=== PATIENT | male | born 1950 | race Caucasian/White ===

== ENCOUNTER 2017-11-05 00:54 | Inpatient (IN) | payer MEDICARE, BC ==
[~2017-11-05] VITALS: Ht 188 cm; Wt 110.0 kg
[2017-11-05] VITALS (20 sets, daily range): BP systolic 125–177; BP diastolic 57–99
[~2017-11-05 00:54] MED LIST: CLOP75TA35 PO; METO25TA6 PO
[2017-11-05 01:34] LABS: HEMOGLOBIN 13.5 g/dl (14.0-17.9); PROTHROMBIN TIME 10.2 SECONDS (9.0-12.0); RED BLOOD COUNT 4.16 X10'6 (4.70-6.10); WHITE BLOOD COUNT 9.7 X10'3 (4.5-11.0)
[2017-11-05 01:35] LABS: BASOPHILS % (AUTO) 0.4 % (0-1); EOSINOPHILS # (AUTO) 0.1 X10'3 (0-0.9); EOSINOPHILS % (AUTO) 1.2 % (0-6); HEMATOCRIT 38.8 % (42.0-52.0); LYMPHOCYTES # (AUTO) 1.3 X10'3 (1.1-4.8); MEAN CORPUSCULAR HEMOGLOBIN 32.5 PG (27.0-31.0); MEAN CORPUSCULAR HGB CONC 34.8 % (33.0-36.5); MEAN CORPUSCULAR VOLUME 93.3 FL (78-98); MEAN PLATELET VOLUME 8.8 FL (7.4-10.4); MONOCYTES # (AUTO) 0.6 X10'3 (0-0.9); MONOCYTES % (AUTO) 6.1 % (2-12); NEUTROPHILS # (AUTO) 7.7 X10'3 (1.8-7.7); NEUTROPHILS % (AUTO) 79.3 % (42-75); PLATELET COUNT 238 X10'3 (140-440); RED CELL DISTRIBUTION WIDTH 13.2 % (11.5-14.5)
[2017-11-05 01:38] LABS: ALANINE AMINOTRANSFERASE 15 U/L (12-78); ALBUMIN 2.7 G/DL (3.4-5.0); ALBUMIN/GLOBULIN RATIO 1.2 (1.1-1.5); ALKALINE PHOSPHATASE 100 IU/L (46-116); ANION GAP 10 (8-16); ASPARTATE AMINO TRANSFERASE 8 U/L (10-37); BILIRUBIN,TOTAL 0.3 MG/DL (0.1-1.0); BLOOD UREA NITROGEN 18 MG/DL (7-18); BUN/CREATININE RATIO 14.3 (5.4-32.0); CALCIUM 7.7 MG/DL (8.5-10.1); CHLORIDE 108 MMOL/L (99-107); CREATININE 1.26 MG/DL (0.60-1.10); GLUCOSE 321 MG/DL (70-104); POTASSIUM 4.3 MMOL/L (3.5-5.1); SODIUM 141 MMOL/L (135-145); TOTAL CARBON DIOXIDE 23.5 MMOL/L (24-32); TOTAL PROTEIN 4.9 G/DL (6.4-8.2); eGFR 57 ML/MIN
[2017-11-05] MEDS ORDERED: pantoprazole 40 MG vial IV ONE (01:50)
[2017-11-05] MEDS ORDERED: normal saline 1000ML IV soln IV ONE (01:50)
[2017-11-05] MEDS ORDERED: tranexamic acid 100mg/ml inj. IV ONE (01:55)
[2017-11-05] MEDS ORDERED: CLOP75TA15 PO (02:17)
[2017-11-05] MEDS ORDERED: AMLO2.5T2 PO (02:17)
[2017-11-05 02:47] LABS: HEMATOCRIT 31.6 % (42.0-52.0); HEMOGLOBIN 10.8 g/dl (14.0-17.9); MEAN CORPUSCULAR HEMOGLOBIN 31.3 PG (27.0-31.0); MEAN CORPUSCULAR HGB CONC 34.3 % (33.0-36.5); MEAN CORPUSCULAR VOLUME 91.2 FL (78-98); MEAN PLATELET VOLUME 8.5 FL (7.4-10.4); PLATELET COUNT 183 X10'3 (140-440); RED BLOOD COUNT 3.46 X10'6 (4.70-6.10); WHITE BLOOD COUNT 9.6 X10'3 (4.5-11.0)
[2017-11-05 02:57] LABS: COLOR,URINE YELLOW (Yellow); GLUCOSE, URINE >=1000 mg/dl (Neg); KETONES,URINE TRACE mg/dl (Neg); LEUKOCYTE ESTERASE ,URINE NEGATIVE (Neg); NITRITES, URINE NEGATIVE (Neg); OCCULT BLOOD,URINE MODERATE (Neg); PH,URINE 5.5 (4.8-8.0); PROTEIN,URINE NEGATIVE (Neg); UROBILINOGEN,URINE 0.2 E.U/dL (0.2-1.0)
[2017-11-05 02:58] LABS: PARTIAL THROMBOPLASTIN TIME 27 SECONDS (22-32)
[2017-11-05 03:04] LABS: CLARITY,URINE SLIGHTLY CLOUDY (Clear); UA COLLECTION TYPE FOLEY CATH
[2017-11-05 03:05] LABS: BACTERIA,URINE FEW /HPF (Neg); SQUAMOUS EPITHELIAL CELL,UR FEW /LPF (FEW); WBC,URINE NONE SEEN /HPF (0-4)
[2017-11-05] MEDS ORDERED: bisacodyl 10mg suppository rectal RC PRN (03:20)
[2017-11-05] MEDS ORDERED: mag hydrox/Alum hydrox/simeth 30ml oral suspension PO PRN (03:20)
[2017-11-05] MEDS ORDERED: acetaminophen 650mg rectal suppository RC PRN (03:20)
[2017-11-05] MEDS ORDERED: HYDROmorphone 1 mg/ml syringe IV PRN ×2 (03:20)
[2017-11-05] MEDS ORDERED: insulin Lispro (HumaLOG) vial - multi-dose SQ SCH (03:20)
[2017-11-05] MEDS ORDERED: HYDROcodone/acetaminophen 10/325mg tab PO PRN (03:20)
[2017-11-05] MEDS ORDERED: HYDROcodone/acetaminophen 5mg/325mg tablet PO PRN (03:20)
[2017-11-05] MEDS ORDERED: ondansetron/PF 4mg/2ml inj IV PRN (03:20)
[2017-11-05] MEDS ORDERED: magnesium hydroxide 30ml (MOM) UD suspension PO PRN (03:20)
[2017-11-05] MEDS ORDERED: acetaminophen 325mg tablet PO PRN ×2 (03:20)
[2017-11-05] MEDS ORDERED: dextrose ORAL solution 15 GM/59 ML bottle PO PRN ×2 (03:20)
[2017-11-05] MEDS ORDERED: MESSAGE TO PHARMACY PO ONE (03:20)
[2017-11-05] MEDS ORDERED: morphine 2 MG/ML inj. syringe IV PRN ×2 (03:20)
[2017-11-05] MEDS ORDERED: glucagon, human recombinant 1mg kit SUBCUT PRN (03:20)
[2017-11-05] MEDS ORDERED: diphenhydrAMINE 50 mg/ml inj IV PRN (03:20)
[2017-11-05] MEDS ORDERED: diphenhydrAMINE 25mg capsule PO PRN (03:20)
[2017-11-05] MEDS ORDERED: dextrose 50%-water 50ml dispensing syringe IV PRN ×2 (03:20)
[2017-11-05 03:45] LABS: HEMOGLOBIN A1C 7.8 % (4.5-6.2)
[2017-11-05 03:51] LABS: MAGNESIUM 1.8 MG/DL (1.5-2.4); PHOSPHORUS 3.3 MG/DL (2.3-4.5)
[2017-11-05] MEDS: normal saline 1000ml 1,000 ML IV SCH ×3 (05:08→23:20)
[2017-11-05] MEDS ORDERED: pantoprazole 40MG/NS 100ML BAG 100 ML IV SCH (06:00)
[2017-11-05 07:00] LABS: BASOPHILS % (AUTO) 0.3 % (0-1); EOSINOPHILS # (AUTO) 0.1 X10'3 (0-0.9); EOSINOPHILS % (AUTO) 1.4 % (0-6); HEMATOCRIT 36.5 % (42.0-52.0); HEMOGLOBIN 12.5 g/dl (14.0-17.9); LYMPHOCYTES # (AUTO) 1.1 X10'3 (1.1-4.8); LYMPHOCYTES % (AUTO) 10.2 % (21-51); MEAN CORPUSCULAR HEMOGLOBIN 31.1 PG (27.0-31.0); MEAN CORPUSCULAR HGB CONC 34.3 % (33.0-36.5); MEAN CORPUSCULAR VOLUME 90.7 FL (78-98); MEAN PLATELET VOLUME 8.4 FL (7.4-10.4); MONOCYTES # (AUTO) 0.5 X10'3 (0-0.9); MONOCYTES % (AUTO) 4.7 % (2-12); NEUTROPHILS # (AUTO) 8.8 X10'3 (1.8-7.7); NEUTROPHILS % (AUTO) 83.4 % (42-75); PLATELET COUNT 207 X10'3 (140-440); RED BLOOD COUNT 4.02 X10'6 (4.70-6.10); RED CELL DISTRIBUTION WIDTH 14.5 % (11.5-14.5); WHITE BLOOD COUNT 10.6 X10'3 (4.5-11.0)
[2017-11-05 07:12] LABS: AMYLASE 33 U/L (25-115); LIPASE 232 U/L (73-393)
[2017-11-05] MEDS: docusate sod 100mg capsule PO SCH ×2 (07:48→20:00)
[2017-11-05] MEDS ORDERED: potassium Cl 20 mEq SR tablet PO PRN ×2 (09:45)
[2017-11-05] MEDS ORDERED: potassium Cl 40MEQ/NS 500ml 500 ML IV PRN ×2 (09:45)
[2017-11-05] MEDS ORDERED: magnesium Cl slow-release 64mg tablet PO PRN (09:45)
[2017-11-05] MEDS ORDERED: magnesium 4gm in 100ml NS 100 ML IV PRN (09:45)
[2017-11-05] MEDS ORDERED: magnesium 2GM in 50ml NS 50 ML IV SCH (09:55)
[2017-11-05] MEDS ORDERED: MIDAZolam 5mg/5ml vial ONE (12:31)
[2017-11-05] MEDS ORDERED: fentaNYL/PF 50MCG/1 ML 2ML syringe ONE (12:31)
[2017-11-05] MEDS ORDERED: LIDOcaine Viscous 15ml cup ONE (12:31)
[2017-11-05] MEDS: lisinopril 20mg tablet PO SCH (13:52)
[2017-11-05] MEDS: amLODIPine 5mg tablet PO SCH (13:52)
[2017-11-05] MEDS ORDERED: PEG 3350/Na sulf,bicarb,Cl/KCl oral sol 4 liter bottle PO ONE (14:45)
[2017-11-05] MEDS ORDERED: temazepam 15mg capsule PO PRN (21:00)
[2017-11-06] VITALS (9 sets, daily range): BP systolic 137–164; BP diastolic 54–94
[2017-11-06 05:10] LABS: BASOPHILS % (AUTO) 0.4 % (0-1); EOSINOPHILS # (AUTO) 0.2 X10'3 (0-0.9); EOSINOPHILS % (AUTO) 2.7 % (0-6); HEMATOCRIT 30.8 % (42.0-52.0); HEMOGLOBIN 10.6 g/dl (14.0-17.9); LYMPHOCYTES % (AUTO) 25.4 % (21-51); MEAN CORPUSCULAR HEMOGLOBIN 31.1 PG (27.0-31.0); MEAN CORPUSCULAR HGB CONC 34.5 % (33.0-36.5); MEAN CORPUSCULAR VOLUME 90.2 FL (78-98); MEAN PLATELET VOLUME 8.2 FL (7.4-10.4); MONOCYTES # (AUTO) 0.6 X10'3 (0-0.9); MONOCYTES % (AUTO) 7.9 % (2-12); NEUTROPHILS # (AUTO) 4.9 X10'3 (1.8-7.7); NEUTROPHILS % (AUTO) 63.6 % (42-75); PLATELET COUNT 172 X10'3 (140-440); RED BLOOD COUNT 3.41 X10'6 (4.70-6.10); RED CELL DISTRIBUTION WIDTH 14.2 % (11.5-14.5); WHITE BLOOD COUNT 7.8 X10'3 (4.5-11.0)
[2017-11-06 05:36] LABS: ALANINE AMINOTRANSFERASE 12 U/L (12-78); ALBUMIN 2.7 G/DL (3.4-5.0); ALBUMIN/GLOBULIN RATIO 1.3 (1.1-1.5); ALKALINE PHOSPHATASE 80 IU/L (46-116); ANION GAP 8 (8-16); ASPARTATE AMINO TRANSFERASE 12 U/L (10-37); BILIRUBIN,TOTAL 0.4 MG/DL (0.1-1.0); BLOOD UREA NITROGEN 13 MG/DL (7-18); BUN/CREATININE RATIO 13.5 (5.4-32.0); CALCIUM 7.5 MG/DL (8.5-10.1); CHLORIDE 110 MMOL/L (99-107); CREATININE 0.96 MG/DL (0.60-1.10); GLUCOSE 160 MG/DL (70-104); PHOSPHORUS 2.4 MG/DL (2.3-4.5); POTASSIUM 3.9 MMOL/L (3.5-5.1); SODIUM 142 MMOL/L (135-145); TOTAL PROTEIN 4.8 G/DL (6.4-8.2); eGFR 78 ML/MIN
[2017-11-06] MEDS ORDERED: pantoprazole 40 MG vial IV SCH (08:00)
[2017-11-06] MEDS: docusate sod 100mg capsule PO SCH (08:00)
[2017-11-06] MEDS: lisinopril 20mg tablet PO SCH (09:10)
[2017-11-06] MEDS: amLODIPine 5mg tablet PO SCH (09:11)
[2017-11-06] MEDS: normal saline 1000ml 1,000 ML IV SCH (09:22)
[2017-11-06] MEDS ORDERED: MIDAZolam 5mg/5ml vial ONE (11:12)
[2017-11-06] MEDS ORDERED: fentaNYL/PF 50MCG/1 ML 2ML syringe ONE (11:12)
[2017-11-06] MEDS ORDERED: METF-950 PO (16:47)
[2017-11-06] MEDS ORDERED: PANT40TA4 PO (16:47)
[2017-11-06] MEDS ORDERED: LISI-600 PO (16:47)
[2017-11-06] MEDS ORDERED: SITA100T15 PO (16:47)
== END 2017-11-06 18:47 | disposition home or self-care (01) | DRG 378 ==
LOC: ER 00:54 → ED HOLD 03:19 → PCU 3S 04:40
PROVIDERS: ADMIT Family Medicine; ATTEND Family Medicine
PROC: 30233N1 Transfusion of Nonautologous Red Blood Cells into Peripheral Vein, Percutaneous Approach (ICD-10-PCS; principal; 2017-11-05)
PROC: 0DB48ZX Excision of Esophagogastric Junction, Via Natural or Artificial Opening Endoscopic, Diagnostic (ICD-10-PCS; 2017-11-05)
PROC: 0DJD8ZZ Inspection of Lower Intestinal Tract, Via Natural or Artificial Opening Endoscopic (ICD-10-PCS; 2017-11-06)
DX: K57.31 Diverticulosis of large intestine without perforation or abscess with bleeding (principal); I50.30 Unspecified diastolic (congestive) heart failure; D50.0 Iron deficiency anemia secondary to blood loss (chronic); E11.65 Type 2 diabetes mellitus with hyperglycemia; E78.00 Pure hypercholesterolemia, unspecified; F17.290 Nicotine dependence, other tobacco product, uncomplicated; K21.0 Gastro-esophageal reflux disease with esophagitis; Z60.2 Problems related to living alone; I11.0 Hypertensive heart disease with heart failure; I25.10 Atherosclerotic heart disease of native coronary artery without angina pectoris; K64.9 Unspecified hemorrhoids; Z79.02 Long term (current) use of antithrombotics/antiplatelets; Z79.84 Long term (current) use of oral hypoglycemic drugs; Z79.899 Other long term (current) drug therapy; Z88.6 Allergy status to analgesic agent; Z88.8 Allergy status to other drugs, medicaments and biological substances; Z91.018 Allergy to other foods
CPT/HCPCS: 36415; 36430; 43239; 45378; 71045; 74176; 80053; 81001; 82150; 82948; 83036; 83690; 83735; 83880; 84100; 85025; 85027; 85610; 85730; 86885; 86900; 86901; 86920; 87070; 88305; 93005; 96361; 96374; 96375; 99153; 99291; A4620; A6213; A6258; C9113; G0500; J2250; J3010; J7030; P9016

== ENCOUNTER 2018-12-19 20:09 | Inpatient (IN) | payer MEDICARE, BC ==
[2018-12-19] VITALS (7 sets, daily range): BP systolic 95–187; BP diastolic 61–84
[~2018-12-19] VITALS: Ht 190.5 cm; Wt 117.2 kg
[~2018-12-19 20:09] MED LIST changes: +AMLO2.5T2 PO; +CLOP75TA15 PO; -CLOP75TA35 PO; +LISI-600 PO; -METO25TA6 PO; +PANT40TA4 PO; +heparin 10,000 units/1 ML INJ ONE; +papaverine 30 mg/ml 2ml inj. ONE; +potassium Cl 2 mEq/ml inj IV ONE
[2018-12-19] MEDS ORDERED: normal saline 1000ML IV soln IVB ONE (20:20)
[2018-12-19] MEDS ORDERED: clopidogrel 75mg tablet PO ONE (20:20)
[2018-12-19] MEDS ORDERED: heparin 25,000 UNIT/250ml bag 250 ML IV SCH (20:29)
[2018-12-19] MEDS ORDERED: heparin 10,000 units/1 ML INJ IV ONE ×2 (20:30)
[2018-12-19] MEDS: heparin 10,000 units/1 ML INJ IV PRN (20:32)
[2018-12-19 20:38] LABS: BASOPHILS % (AUTO) 0.5 % (0-1); EOSINOPHILS # (AUTO) 0.2 X10'3 (0-0.9); EOSINOPHILS % (AUTO) 2.5 % (0-6); HEMATOCRIT 48.3 % (42.0-52.0); HEMOGLOBIN 16.6 g/dl (14.0-17.9); LYMPHOCYTES # (AUTO) 1.5 X10'3 (1.1-4.8); MEAN CORPUSCULAR HEMOGLOBIN 32.6 PG (27.0-31.0); MEAN CORPUSCULAR HGB CONC 34.3 g/dL (33.0-36.5); MEAN PLATELET VOLUME 8.3 FL (7.4-10.4); MONOCYTES # (AUTO) 0.8 X10'3 (0-0.9); MONOCYTES % (AUTO) 9.1 % (2-12); NEUTROPHILS # (AUTO) 6.3 X10'3 (1.8-7.7); NEUTROPHILS % (AUTO) 70.9 % (42-75); PLATELET COUNT 217 X10'3 (140-440); RED BLOOD COUNT 5.08 X10'6 (4.70-6.10); RED CELL DISTRIBUTION WIDTH 14.4 % (11.5-14.5); WHITE BLOOD COUNT 8.9 X10'3 (4.5-11.0)
[2018-12-19] MEDS ORDERED: LIDOcaine 1% (10mg/ml)w/preservative injection 20ml MDV ONE (20:38)
[2018-12-19] MEDS ORDERED: iohexol 350 MG/1 ML 200ml bottle ONE (20:38)
[2018-12-19] MEDS ORDERED: heparin 1,000unit/ml 10ml vial 10 ML ONE (20:38)
[2018-12-19 20:55] LABS: ALANINE AMINOTRANSFERASE 32 U/L (12-78); ALBUMIN 3.6 G/DL (3.4-5.0); ALKALINE PHOSPHATASE 123 IU/L (46-116); ANION GAP 10 (8-16); ASPARTATE AMINO TRANSFERASE 73 U/L (10-37); BILIRUBIN,TOTAL 0.4 MG/DL (0.1-1.0); BLOOD UREA NITROGEN 16 MG/DL (7-18); BUN/CREATININE RATIO 12.5 (5.4-32.0); CALCIUM 9.4 MG/DL (8.5-10.1); CHLORIDE 105 MMOL/L (99-107); CREATININE 1.28 MG/DL (0.60-1.10); GLUCOSE 221 MG/DL (70-104); MAGNESIUM 1.9 MG/DL (1.5-2.4); POTASSIUM 3.9 MMOL/L (3.5-5.1); SODIUM 142 MMOL/L (135-145); TOTAL CARBON DIOXIDE 26.8 MMOL/L (24-32); TOTAL PROTEIN 7.1 G/DL (6.4-8.2); eGFR 56 ML/MIN
--- NOTE | 2018-12-19 21:20 | NUR ---
Received report from label coder and awaiting arrival of patient to the PCU unit.
--- NOTE | 2018-12-19 21:30 | NUR ---
Patient arrived to the PCU unit at this time from the labor training manager. Patient stable and denies chest pain upon arrival but does complain of some back pain. He is able to make his needs known. He is on room air. Lying flat and will lay flat until 0000 per orders. Right groin site looks good with no bleeding or bruising around site and tegaderm and gauze dressing is in place. Pedal pulses intact. Blood pressure high with SBP in the 170's so will give PRN IVP Hydralazine. Will continue to monitor.
--- NOTE | 2018-12-19 22:00 | NUR ---
Informed by telegraphic typewriter installer that patient is in and out of bigeminy and that he had an 11 beat run of V-tach vs SVT and Doctor Marcelo notified via telephone and no new ordered were received.
[2018-12-19] MEDS ORDERED: hydrALAZINE 20mg/ml inj. IV PRN (22:35)
[2018-12-19] MEDS ORDERED: OXAZEpam 15mg capsule PO PRN (22:35)
[2018-12-19] MEDS ORDERED: HYDROcodone/acetaminophen 10/325mg tab PO PRN ×2 (22:35)
[2018-12-19] MEDS ORDERED: nitroGLYCERIN-Tridil 50MG/D5W 250 ML IV SCH (22:35)
[2018-12-19] MEDS ORDERED: cyclobenzaprine 10mg tablet PO PRN (22:35)
[2018-12-19] MEDS ORDERED: HYDROmorphone inj. 0.5 MG/0.5 ML DISP.SYRIN IV PRN (22:35)
[2018-12-19] MEDS ORDERED: normal saline 1000ml 400 ML IV SCH (22:40)
[2018-12-19] MEDS ORDERED: temazepam 15mg capsule PO PRN (22:40)
[2018-12-19] MEDS ORDERED: nitroGLYCERIN 0.4mg SUBLingual tab SL PRN (23:15)
--- NOTE | 2018-12-19 23:23 | NUR ---
Patient reporting increasing chest pain , unable to give a number but describes it as a pressure and was given Nitro SL x1 dose and this was effective in bringing the pain down to 1/10 and he says he does not need a second dose at this time.
[2018-12-19] MEDS: heparin 25,000 UNIT/250ml bag 250 ML IV SCH (23:28)
--- NOTE | 2018-12-19 23:30 | NUR ---
Per report from cath lab technologist nurse and also per the written order from Dr. Robertson, the Nitro drip is only to be started if patient gets chest pain that is unrelieved by the SL Nitro.
[2018-12-20] VITALS (9 sets, daily range): BP systolic 119–175; BP diastolic 61–86
[2018-12-20 03:23] LABS: CHOL/HDL RATIO 4.2 (0.00-4.99); CHOLESTEROL 157 MG/DL (0-200); HDL CHOLESTEROL 37 MG/DL (35-60)
[2018-12-20 03:25] LABS: LDL CHOLESTEROL 99 MG/DL (50-100); TRIGLYCERIDES 209 MG/DL (20-135)
[2018-12-20] MEDS: heparin 10,000 units/1 ML INJ IV PRN ×2 (03:48→11:27)
[2018-12-20] MEDS: heparin 25,000 UNIT/250ml bag 250 ML IV SCH ×2 (03:50→19:26)
[2018-12-20] MEDS ORDERED: LISI10TA4 PO (05:02)
[2018-12-20] MEDS ORDERED: AMLO10TA13 PO (05:02)
[2018-12-20] MEDS ORDERED: METF-438 PO (05:02)
[2018-12-20] MEDS ORDERED: CHLO25TA3 PO (05:02)
[2018-12-20] MEDS ORDERED: METO-395 PO (05:02)
--- NOTE | 2018-12-20 06:31 | NUR ---
Problems reprioritized. Patient report given, questions answered & plan of care reviewed with Yoselin CHIN.
--- NOTE | 2018-12-20 06:33 | NUR ---
Patient in room PCU 3023. I have received report from Eleanor CHIN and had the opportunity to ask questions and assume patient care.
[2018-12-20] MEDS ORDERED: glucagon, human recombinant 1mg kit SUBCUT PRN (08:05)
[2018-12-20] MEDS ORDERED: dextrose ORAL solution 15 GM/59 ML bottle PO PRN ×2 (08:05)
[2018-12-20] MEDS ORDERED: dextrose 50%-water 50ml dispensing syringe IV PRN ×2 (08:05)
[2018-12-20] MEDS ORDERED: MESSAGE TO PHARMACY PO ONE (08:05)
[2018-12-20] MEDS: lisinopril 10 MG tablet PO SCH (08:36)
[2018-12-20] MEDS: amLODIPine 5mg tablet PO SCH (08:37)
[2018-12-20] MEDS: metoprolol succinate 25mg (24-HOUR) SR. Tablet PO SCH (08:40)
[2018-12-20 10:18] LABS: ALBUMIN 3.1 G/DL (3.4-5.0); ANION GAP 7 (8-16); BLOOD UREA NITROGEN 16 MG/DL (7-18); BUN/CREATININE RATIO 16.2 (5.4-32.0); CALCIUM 8.8 MG/DL (8.5-10.1); CHLORIDE 106 MMOL/L (99-107); CREATININE 0.99 MG/DL (0.60-1.10); GLUCOSE 180 MG/DL (70-104); POTASSIUM 3.8 MMOL/L (3.5-5.1); SODIUM 139 MMOL/L (135-145); TOTAL CARBON DIOXIDE 25.9 MMOL/L (24-32); eGFR 75 ML/MIN
--- NOTE | 2018-12-20 14:16 | NUR ---
Cardiac diet ed consult: Pt TG 209 on admit. Pt seen by CAR for written/verbal HH ed w/ RD contact information provided. Pt very passive during ed. Addendum: 12/20/18 at [address] Amended: Links added.
[2018-12-20 15:07] LABS: CLARITY,URINE CLEAR (Clear); COLOR,URINE YELLOW (Yellow); GLUCOSE, URINE NEGATIVE (Neg); KETONES,URINE NEGATIVE (Neg); LEUKOCYTE ESTERASE ,URINE NEGATIVE (Neg); NITRITES, URINE NEGATIVE (Neg); OCCULT BLOOD,URINE NEGATIVE (Neg); PROTEIN,URINE NEGATIVE (Neg); UROBILINOGEN,URINE 0.2 E.U/dL (0.2-1.0)
[2018-12-20 15:10] LABS: UA COLLECTION TYPE CLN CATCH MIDSTREAM
[2018-12-20 15:22] LABS: URINE AMPHETAMINE SCREEN NEGATIVE (Neg); URINE BARBITUATE SCREEN NEGATIVE (Neg); URINE BENZODIAZEPINES SCREEN NEGATIVE (Neg); URINE CANNABINOID SCREEN NEGATIVE (Neg); URINE COCAINE SCREEN NEGATIVE (Neg); URINE METHADONE SCREEN NEGATIVE (Neg); URINE OPIATE SCREEN NEGATIVE (Neg); URINE PHENCYCLIDINE SCREEN NEGATIVE (Neg)
--- NOTE | 2018-12-20 16:23 | NUR ---
Problems reprioritized. Patient report given, questions answered & plan of care reviewed with Sparkle CHIN.
--- NOTE | 2018-12-20 16:27 | NUR ---
Patient in room PCU 3023. I have received report from ELSY ro and had the opportunity to ask questions and assume patient care.
--- NOTE | 2018-12-20 16:45 | NUR ---
Patient transferred to ACCE. Patient stable at time of transfer of care to Sparkle CHIN.
--- NOTE | 2018-12-20 16:48 | NUR ---
Orientee documentation: I have reviewed and agree with all interventions, assessments performed and documented by Mahnaz CHIN. Orientee Medication Administration: For this medication-pass time frame, all medication were reviewed, dispensed, administered and documented per hospital policy by Mahnaz CHIN.
--- NOTE | 2018-12-20 20:44 | NUR ---
The patient Blood sugar for 2100 is 201. Patient refuse to get the scheduled lantus. Ama-charge nurse aware of the issue.
[2018-12-20] MEDS: insulin glargine (Lantus) pen - multi-dose SQ SCH (20:45)
[2018-12-21 00:57] LABS: BASOPHILS # (AUTO) 0.1 X10'3 (0-0.2); BASOPHILS % (AUTO) 0.7 % (0-1); EOSINOPHILS # (AUTO) 0.2 X10'3 (0-0.9); EOSINOPHILS % (AUTO) 2.8 % (0-6); HEMATOCRIT 46.3 % (42.0-52.0); HEMOGLOBIN 15.9 g/dl (14.0-17.9); LYMPHOCYTES # (AUTO) 1.9 X10'3 (1.1-4.8); LYMPHOCYTES % (AUTO) 24.1 % (21-51); MEAN CORPUSCULAR HEMOGLOBIN 32.3 PG (27.0-31.0); MEAN CORPUSCULAR HGB CONC 34.3 g/dL (33.0-36.5); MEAN CORPUSCULAR VOLUME 94.2 FL (78-98); MEAN PLATELET VOLUME 8.5 FL (7.4-10.4); MONOCYTES # (AUTO) 0.9 X10'3 (0-0.9); MONOCYTES % (AUTO) 10.6 % (2-12); NEUTROPHILS % (AUTO) 61.8 % (42-75); PLATELET COUNT 208 X10'3 (140-440); RED BLOOD COUNT 4.91 X10'6 (4.70-6.10); RED CELL DISTRIBUTION WIDTH 14.3 % (11.5-14.5); WHITE BLOOD COUNT 8.1 X10'3 (4.5-11.0)
[2018-12-21 01:06] LABS: ALBUMIN 3.3 G/DL (3.4-5.0); ANION GAP 3 (8-16); BLOOD UREA NITROGEN 15 MG/DL (7-18); BUN/CREATININE RATIO 13.6 (5.4-32.0); CALCIUM 9.1 MG/DL (8.5-10.1); CHLORIDE 105 MMOL/L (99-107); GLUCOSE 133 MG/DL (70-104); POTASSIUM 3.8 MMOL/L (3.5-5.1); SODIUM 139 MMOL/L (135-145); TOTAL CARBON DIOXIDE 30.8 MMOL/L (24-32); eGFR 66 ML/MIN
[2018-12-21] MEDS: heparin 10,000 units/1 ML INJ IV PRN ×3 (01:32→23:48)
[2018-12-21] MEDS: heparin 25,000 UNIT/250ml bag 250 ML IV SCH ×3 (01:33→23:53)
[2018-12-21 02:00] VITALS: BP 155/85
--- NOTE | 2018-12-21 05:52 | NUR ---
Orientee documentation: I have reviewed and agree with all interventions, assessments performed and documented by Margy Garcia RN.
[2018-12-21 06:00] VITALS: BP 179/84
--- NOTE | 2018-12-21 06:13 | NUR ---
Gave report to Josephine. Answered all the questions.
[2018-12-21] MEDS: amLODIPine 5mg tablet PO SCH (08:33)
[2018-12-21] MEDS: lisinopril 10 MG tablet PO SCH (08:34)
[2018-12-21] MEDS: metoprolol succinate 25mg (24-HOUR) SR. Tablet PO SCH (08:34)
--- NOTE | 2018-12-21 09:22 | NUR ---
PAGED VASCULAR "PATIENT ANNELIESE IN 312. CAN YOU PLEASE COME DO VEIN MAPPING AND CAROTID US THIS MORNING? PRE OP CABG. THANK YOU, LEI GASCA [phone]"
--- NOTE | 2018-12-21 09:23 | NUR ---
PAGED RESPIRATORY "PT ANNELIESE IN 312. CAN YOU PLEASE COME DO ABG FOR PATIENT? THANK YOU, LEI GASCA [phone]"
[2018-12-21] MEDS: insulin Lispro (HumaLOG) vial - multi-dose SQ SCH (09:45)
[2018-12-21 11:00] VITALS: BP 148/77
[2018-12-21] MEDS ORDERED: ringers solution, lacted 1,000 ML IV ONE (11:22)
[2018-12-21 13:15] LABS: MAGNESIUM 2.1 MG/DL (1.5-2.4)
[2018-12-21 18:00] VITALS: BP 159/85
--- NOTE | 2018-12-21 18:00 | NUR ---
Patient in room MED 312. I have received report from JACK CHIN and had the opportunity to ask questions and assume patient care.
--- NOTE | 2018-12-21 18:42 | NUR ---
Problems reprioritized. Patient report given, questions answered & plan of care reviewed with ELSY Martinez.
[2018-12-21] MEDS: insulin glargine (Lantus) pen - multi-dose SQ SCH (21:32)
[2018-12-21 22:00] VITALS: BP 152/72
[2018-12-22 02:00] VITALS: BP 146/71
[2018-12-22 05:58] LABS: BASOPHILS # (AUTO) 0.1 X10'3 (0-0.2); BASOPHILS % (AUTO) 1.1 % (0-1); EOSINOPHILS # (AUTO) 0.2 X10'3 (0-0.9); EOSINOPHILS % (AUTO) 3.1 % (0-6); HEMATOCRIT 43.7 % (42.0-52.0); LYMPHOCYTES # (AUTO) 1.7 X10'3 (1.1-4.8); LYMPHOCYTES % (AUTO) 22.3 % (21-51); MEAN CORPUSCULAR HEMOGLOBIN 32.5 PG (27.0-31.0); MEAN CORPUSCULAR HGB CONC 34.4 g/dL (33.0-36.5); MEAN CORPUSCULAR VOLUME 94.7 FL (78-98); MEAN PLATELET VOLUME 8.1 FL (7.4-10.4); MONOCYTES # (AUTO) 0.8 X10'3 (0-0.9); MONOCYTES % (AUTO) 10.5 % (2-12); NEUTROPHILS # (AUTO) 4.8 X10'3 (1.8-7.7); PLATELET COUNT 196 X10'3 (140-440); RED BLOOD COUNT 4.62 X10'6 (4.70-6.10); RED CELL DISTRIBUTION WIDTH 14.2 % (11.5-14.5); WHITE BLOOD COUNT 7.6 X10'3 (4.5-11.0)
[2018-12-22 06:00] VITALS: BP 161/75
[2018-12-22] MEDS ORDERED: LORazepam 2 mg/ml vial IV ONE (06:00)
[2018-12-22] MEDS ORDERED: famotidine 20mg tablet PO ONE (06:00)
--- NOTE | 2018-12-22 06:00 | NUR ---
Problems reprioritized. Patient report given, questions answered & plan of care reviewed with JAUN CHIN .
[2018-12-22 06:16] LABS: ALBUMIN 3.2 G/DL (3.4-5.0); ANION GAP 8 (8-16); BLOOD UREA NITROGEN 15 MG/DL (7-18); BUN/CREATININE RATIO 13.8 (5.4-32.0); CALCIUM 8.8 MG/DL (8.5-10.1); CHLORIDE 106 MMOL/L (99-107); CREATININE 1.09 MG/DL (0.60-1.10); GLUCOSE 139 MG/DL (70-104); POTASSIUM 3.8 MMOL/L (3.5-5.1); SODIUM 140 MMOL/L (135-145); TOTAL CARBON DIOXIDE 26.3 MMOL/L (24-32); eGFR 67 ML/MIN
[2018-12-22] MEDS: heparin 25,000 UNIT/250ml bag 250 ML IV SCH ×4 (06:17→21:40)
--- NOTE | 2018-12-22 07:14 | NUR ---
Patient in room MED 312. I have received report from celina Castaneda and had the opportunity to ask questions and assume patient care.
[2018-12-22] MEDS: lisinopril 10 MG tablet PO SCH (07:57)
[2018-12-22] MEDS: amLODIPine 5mg tablet PO SCH (07:58)
[2018-12-22] MEDS: metoprolol succinate 25mg (24-HOUR) SR. Tablet PO SCH (07:58)
[2018-12-22] MEDS ORDERED: heparin 10,000 units/1 ML INJ ONE (08:00)
[2018-12-22] MEDS ORDERED: aminocaproic acid 250 MG/1 ML inj. ONE (08:00)
[2018-12-22] MEDS ORDERED: calcium chloride 100 MG/1 ML inj IV ONE (08:00)
[2018-12-22] MEDS ORDERED: LIDOcaine 2% (20 mg/ml) 5ml cardiac syringe ONE (08:00)
[2018-12-22] MEDS ORDERED: MAGNESIUM SULFATE 4 MEQ/ML (5gm/10ml) injection ONE (08:00)
[2018-12-22] MEDS ORDERED: sodium bicarbonate (8.4%) 1 mEq/ml syringe ONE (08:00)
[2018-12-22] MEDS ORDERED: albumin (human) 25% 100 ML IV solution IV ONE (08:00)
[2018-12-22] MEDS ORDERED: phenylephrine 10mg/ml inj. ONE (08:00)
[2018-12-22] MEDS ORDERED: methylPREDNISolone sod. succ. 500mg inj ONE (08:00)
[2018-12-22 11:00] VITALS: BP 151/81
[2018-12-22] MEDS: heparin 10,000 units/1 ML INJ IV PRN (13:18)
[2018-12-22] MEDS ORDERED: potassium Cl 20 mEq SR tablet PO STA (13:23)
[2018-12-22] MEDS ORDERED: insulin regular, human 100 UNIT in normal saline 100ml IV soln 100 ML IV SCH ×2 (14:03)
[2018-12-22] MEDS ORDERED: MALTODEXTRIN/FRUCTOSE 0.68 KCAL/ML LIQUID 296ML BOTTLE PO ONE (14:05)
[2018-12-22] MEDS ORDERED: dextrose 50%-water 50ml dispensing syringe IV PRN (14:05)
[2018-12-22] MEDS ORDERED: gabapentin 400mg capsule PO ONE (14:05)
[2018-12-22] MEDS ORDERED: potassium Cl 20mEq/100mL bag 100 ML IV PRN (14:05)
[2018-12-22] MEDS ORDERED: magnesium 2GM in 50ml NS 50 ML IV PRN (14:05)
[2018-12-22] MEDS ORDERED: vancomycin/NS 1 GM ADD-VANTAGE 250 ML IV ONE (14:05)
[2018-12-22] MEDS ORDERED: insulin glargine (Lantus) pen - multi-dose SQ PRN (14:05)
[2018-12-22] MEDS ORDERED: potassium CL 10mEq/100ml bag 100 ML IV PRN ×2 (14:05→21:05)
[2018-12-22] MEDS ORDERED: cefazolin/dext.iso 2gm/50ml 50 ML IV ONE (14:05)
[2018-12-22] MEDS ORDERED: potassium Cl 20 mEq SR tablet PO PRN ×3 (14:05→21:05)
[2018-12-22] MEDS ORDERED: MESSAGE TO NURSING PO ONE ×4 (14:05)
[2018-12-22 15:00] VITALS: BP 146/79
[2018-12-22 18:00] VITALS: BP 164/70
--- NOTE | 2018-12-22 18:00 | NUR ---
Patient in room MED 312. I have received report from JACK CHIN and had the opportunity to ask questions and assume patient care.
--- NOTE | 2018-12-22 18:00 | NUR ---
Problems reprioritized. Patient report given, questions answered & plan of care reviewed with .ELSY Martinez
[2018-12-22] MEDS ORDERED: metoprolol tartrate 12.5mg (1/2 tablet) PO SCH (20:00)
[2018-12-22] MEDS ORDERED: mupirocin 2% nasal ointment 1gm UD NS SCH (20:00)
[2018-12-22] MEDS ORDERED: magnesium 4gm in 100ml NS 100 ML IV PRN (21:05)
[2018-12-22] MEDS ORDERED: magnesium Cl slow-release 64mg tablet PO PRN (21:05)
[2018-12-22] MEDS: insulin glargine (Lantus) pen - multi-dose SQ SCH (22:34)
[2018-12-23] VITALS (16 sets, daily range): BP systolic 116–156; BP diastolic 49–63
--- NOTE | 2018-12-23 01:33 | NUR ---
Page to Respiratory: 312 pt Portillo pre-CABG in am. Active order for ABG. Thank you.
--- NOTE | 2018-12-23 02:00 | NUR ---
Called Ld Johnson regarding heparin running and he ordered for the heparin to run until OR called up or came and got pt. Addendum: 12/23/18 at 0638 by Jackeline Suggs RN Called Benny CHEN, not Ld Johnson
[2018-12-23 04:40] LABS: ABG BASE EXCESS -0.4 mmol/L (-2.0-3.0); ABG HCO3 23.8 mmol/L (22.0-26.0); ABG OXYGEN SATURATION 93.8 % (95-98); ABG PCO2 (T) 37.3 mmHg (35.0-45.0); ABG PH (T) 7.421 (7.350-7.450); ABG PO2 (T) 66.1 mmHg (83-108); ALLEN'S TEST Positive; FCOHb 1.1 % (0.5-1.5); FMetHb 0.2 % (0.3-1.12); FO2Hb 92.6 % (94-100); PATIENT TEMPERATURE 36.7; RESPIRATORY RATE (OBSERVED) 16 b/min; TOTAL HEMOGLOBIN 15.9 G/dl (14.0-17.9)
[2018-12-23 05:05] LABS: BASOPHILS # (AUTO) 0.1 X10'3 (0-0.2); BASOPHILS % (AUTO) 0.7 % (0-1); EOSINOPHILS # (AUTO) 0.2 X10'3 (0-0.9); EOSINOPHILS % (AUTO) 3.2 % (0-6); HEMATOCRIT 45.3 % (42.0-52.0); HEMOGLOBIN 15.6 g/dl (14.0-17.9); LYMPHOCYTES # (AUTO) 1.5 X10'3 (1.1-4.8); LYMPHOCYTES % (AUTO) 20.3 % (21-51); MEAN CORPUSCULAR HEMOGLOBIN 32.9 PG (27.0-31.0); MEAN CORPUSCULAR HGB CONC 34.4 g/dL (33.0-36.5); MEAN CORPUSCULAR VOLUME 95.5 FL (78-98); MEAN PLATELET VOLUME 8.2 FL (7.4-10.4); MONOCYTES # (AUTO) 0.8 X10'3 (0-0.9); MONOCYTES % (AUTO) 11.2 % (2-12); NEUTROPHILS # (AUTO) 4.7 X10'3 (1.8-7.7); NEUTROPHILS % (AUTO) 64.6 % (42-75); PLATELET COUNT 206 X10'3 (140-440); RED BLOOD COUNT 4.75 X10'6 (4.70-6.10); WHITE BLOOD COUNT 7.3 X10'3 (4.5-11.0)
[2018-12-23] MEDS ORDERED: ROPIVAcaine 0.5% (5mg/ml) 30ml vial ONE ×2 (05:10→10:37)
[2018-12-23 05:17] LABS: ALBUMIN 3.4 G/DL (3.4-5.0); ANION GAP 8 (8-16); BLOOD UREA NITROGEN 19 MG/DL (7-18); BUN/CREATININE RATIO 17.4 (5.4-32.0); CHLORIDE 105 MMOL/L (99-107); CREATININE 1.09 MG/DL (0.60-1.10); GLUCOSE 118 MG/DL (70-104); POTASSIUM 4.1 MMOL/L (3.5-5.1); SODIUM 139 MMOL/L (135-145); TOTAL CARBON DIOXIDE 25.7 MMOL/L (24-32); eGFR 67 ML/MIN
[2018-12-23] MEDS ORDERED: cefazolin/dext.iso 2gm/50ml 50 ML IV ONE (05:30)
--- NOTE | 2018-12-23 06:00 | NUR ---
Patient in room MED 312. I have received report from ELSY Martinez and had the opportunity to ask questions and assume patient care.
[2018-12-23] MEDS ORDERED: SUFENTANIL CITRATE 50 MCG/ML 2ml ampule IV ONE ×2 (06:51→11:06)
[2018-12-23] MEDS ORDERED: midazolam 2 mg/2 ml injection ONE (06:53)
--- NOTE | 2018-12-23 06:55 | NUR ---
OR picked up patient at 0655, Ambrocioo running, pepcid and ativan 1 gm given. Pt left unit without any distress
[2018-12-23 07:41] LABS: ABG BASE EXCESS -4.2 mmol/L (-2.0-3.0); ABG HCO3 20.8 mmol/L (22.0-26.0); ABG OXYGEN SATURATION 99.5 % (95-98); ABG PH 7.356 (7.350-7.450); ABG PO2 379.2 mmHg (60.0-100.0); CL (ABG) 105 mmol/L (99-107); FMetHb 0.3 % (0.3-1.12); FO2Hb 98.2 % (94-100); GLUCOSE (ABG) 160 mg/dl (70-104); IONIZED CA (ABG) 1.16 mmol/L (1.03-1.32); K (ABG) 4.1 mmol/L (3.3-5.1); NA (ABG) 136 mmol/L (135-145)
[2018-12-23] MEDS ORDERED: niCARDipine in NS 40mg/200ml (0.2mg/ml) IVPB IV ONE (07:50)
[2018-12-23] MEDS ORDERED: isoflurane 100ml inhalation liquid IH ONE (07:50)
[2018-12-23] MEDS ORDERED: acetaminophen 1000 MG/100ml vial IV ONE (07:50)
[2018-12-23] MEDS ORDERED: nitroGLYCERIN in D5W 50mg/250ml (Tridil) infusion IV ONE (07:50)
[2018-12-23] MEDS ORDERED: protamine sulf. 10mg/ml inj. IV ONE (07:50)
[2018-12-23] MEDS ORDERED: DOPamine/D5W 400mg/250ml bag IV ONE (07:50)
[2018-12-23] MEDS ORDERED: heparin 10,000 units/1 ML INJ IR ONE (07:58)
[2018-12-23] MEDS ORDERED: papaverine 30 mg/ml 2ml inj. IA ONE (07:59)
[2018-12-23] MEDS ORDERED: epiNEPHrine 1 mg/ml inj ONE (08:08)
[2018-12-23] MEDS ORDERED: phenylephrine 10mg/ml inj. ONE (08:08)
[2018-12-23] MEDS ORDERED: LIDOcaine 2% (20mg/ml) 5ml vial ONE (08:08)
[2018-12-23] MEDS ORDERED: propofol inj 40 ML IV ONE (08:08)
[2018-12-23] MEDS ORDERED: esmolol inj. 10 ML IV ONE (08:08)
[2018-12-23] MEDS ORDERED: ePHEDrine 50MG/ML INJ. ONE (08:08)
[2018-12-23] MEDS ORDERED: glycopyrrolate 0.2mg/ml inj ONE (08:08)
[2018-12-23] MEDS ORDERED: rocuronium 10mg/ml inj IV ONE (08:08)
[2018-12-23 08:36] LABS: ABG BASE EXCESS VENOUS -2.8 mmol/L; ABG HCO3 VENOUS 22.9 mmol/L; ABG PCO2 VENOUS 43.3 mmHg; ABG PO2 VENOUS 44.5 mmHg; CL (ABG) 107 mmol/L (99-107); FHHb VENOUS 20.4 %; FMetHb VENOUS 0.4 %; FO2Hb VENOUS 78.2 %; GLUCOSE (ABG) 109 mg/dl (70-104); IONIZED CA (ABG) 1.14 mmol/L (1.03-1.32); K (ABG) 3.9 mmol/L (3.3-5.1); NA (ABG) 136 mmol/L (135-145); TOTAL HEMOGLOBIN 13.8 G/dl (14.0-17.9)
[2018-12-23] MEDS ORDERED: ipratropium/albuterol 3ml nebule IH PRN (09:05)
[2018-12-23 09:06] LABS: ABG BASE EXCESS VENOUS -0.8 mmol/L; ABG HCO3 VENOUS 24.6 mmol/L; ABG PO2 VENOUS 59.6 mmHg; CL (ABG) 105 mmol/L (99-107); FCOHb VENOUS 0.5 %; FHHb VENOUS 9.4 %; FMetHb VENOUS 0.4 %; FO2Hb VENOUS 89.7 %; GLUCOSE (ABG) 100 mg/dl (70-104); IONIZED CA (ABG) 1.05 mmol/L (1.03-1.32); K (ABG) 4.7 mmol/L (3.3-5.1); NA (ABG) 135 mmol/L (135-145); TOTAL HEMOGLOBIN 11.8 G/dl (14.0-17.9)
[2018-12-23 09:15] LABS: ABG BASE EXCESS -0.7 mmol/L (-2.0-3.0); ABG HCO3 24.3 mmol/L (22.0-26.0); ABG OXYGEN SATURATION 99.3 % (95-98); ABG PCO2 41.3 mmHg (35.0-45.0); ABG PH 7.387 (7.350-7.450); ABG PO2 410.9 mmHg (60.0-100.0); CL (ABG) 106 mmol/L (99-107); FCOHb 0.4 % (0.5-1.5); FMetHb 0.4 % (0.3-1.12); FO2Hb 98.5 % (94-100); GLUCOSE (ABG) 99 mg/dl (70-104); IONIZED CA (ABG) 1.05 mmol/L (1.03-1.32); K (ABG) 4.8 mmol/L (3.3-5.1); NA (ABG) 135 mmol/L (135-145); TOTAL HEMOGLOBIN 11.9 G/dl (14.0-17.9)
[2018-12-23 09:46] LABS: ABG BASE EXCESS -1.7 mmol/L (-2.0-3.0); ABG HCO3 23.2 mmol/L (22.0-26.0); ABG OXYGEN SATURATION 99.3 % (95-98); ABG PCO2 39.9 mmHg (35.0-45.0); ABG PH 7.383 (7.350-7.450); ABG PO2 400.9 mmHg (60.0-100.0); CL (ABG) 107 mmol/L (99-107); FCOHb 0.3 % (0.5-1.5); FMetHb 0.3 % (0.3-1.12); FO2Hb 98.7 % (94-100); GLUCOSE (ABG) 128 mg/dl (70-104); IONIZED CA (ABG) 1.08 mmol/L (1.03-1.32); K (ABG) 4.9 mmol/L (3.3-5.1); NA (ABG) 135 mmol/L (135-145); TOTAL HEMOGLOBIN 12.1 G/dl (14.0-17.9)
[2018-12-23] MEDS ORDERED: MESSAGE TO NURSING PO ONE (10:00)
[2018-12-23 10:21] LABS: ABG BASE EXCESS 0.3 mmol/L (-2.0-3.0); ABG HCO3 25.7 mmol/L (22.0-26.0); ABG PCO2 44.6 mmHg (35.0-45.0); ABG PH 7.378 (7.350-7.450); ABG PO2 249.6 mmHg (60.0-100.0); CL (ABG) 106 mmol/L (99-107); FCOHb 0.1 % (0.5-1.5); FMetHb 0.3 % (0.3-1.12); FO2Hb 98.6 % (94-100); GLUCOSE (ABG) 153 mg/dl (70-104); IONIZED CA (ABG) 1.48 mmol/L (1.03-1.32); K (ABG) 5.1 mmol/L (3.3-5.1); NA (ABG) 135 mmol/L (135-145); TOTAL HEMOGLOBIN 11.7 G/dl (14.0-17.9)
[2018-12-23 11:20] LABS: ABG BASE EXCESS VENOUS -1.4 mmol/L; ABG HCO3 VENOUS 23.9 mmol/L; ABG PCO2 VENOUS 42.6 mmHg; ABG PO2 VENOUS 44.9 mmHg; CL (ABG) 107 mmol/L (99-107); FCOHb VENOUS 0.9 %; FHHb VENOUS 19.6 %; FMetHb VENOUS 0.4 %; FO2Hb VENOUS 79.1 %; GLUCOSE (ABG) 108 mg/dl (70-104); IONIZED CA (ABG) 1.21 mmol/L (1.03-1.32); K (ABG) 4.1 mmol/L (3.3-5.1); NA (ABG) 138 mmol/L (135-145); TOTAL HEMOGLOBIN 13.1 G/dl (14.0-17.9)
[2018-12-23] MEDS ORDERED: DOPamine 400mg/D5W 250ml 250 ML IV PRN (11:38)
[2018-12-23] MEDS ORDERED: nitroGLYCERIN-Tridil 50MG/D5W 250 ML IV PRN (11:38)
[2018-12-23] MEDS ORDERED: ondansetron/PF 4mg/2ml inj IV PRN (11:40)
[2018-12-23] MEDS ORDERED: normal saline 250ml IV soln 250 ML IV PRN (11:40)
[2018-12-23] MEDS ORDERED: magnesium hydroxide 30ml (MOM) UD suspension PO PRN (11:40)
[2018-12-23] MEDS ORDERED: dextrose 50%-water 50ml dispensing syringe IV PRN (11:40)
[2018-12-23] MEDS ORDERED: acetaminophen 325mg tablet PO PRN ×2 (11:40)
[2018-12-23] MEDS ORDERED: HYDROcodone/acetaminophen 10/325mg tab PO PRN (11:40)
[2018-12-23] MEDS ORDERED: metoclopramide 5 mg/ml inj IV PRN (11:40)
[2018-12-23] MEDS ORDERED: sodium phosphate inj. 15 MMOL in dextrose 5%-water 150 ML IV PRN (11:40)
[2018-12-23] MEDS ORDERED: magnesium 4gm in 100ml NS 100 ML IV PRN (11:40)
[2018-12-23] MEDS ORDERED: sodium phosphate inj. 30 MMOL in dextrose 5%-water 250 ML IV PRN (11:40)
[2018-12-23] MEDS ORDERED: morphine 4 MG/ML inj SYRINge IV PRN (11:40)
[2018-12-23] MEDS ORDERED: Neutra Phos packet PO PRN (11:40)
[2018-12-23] MEDS ORDERED: pantoprazole 40 MG vial IV ONE (11:40)
[2018-12-23] MEDS ORDERED: insulin regular, human inj. 100 UNITS in normal saline 100ml IV soln 100 ML IV SCH ×2 (11:40)
[2018-12-23] MEDS: insulin regular, human 100 UNIT in normal saline 100ml IV soln 100 ML IV SCH ×2 (11:45)
--- NOTE | 2018-12-23 12:00 | NUR ---
Received to room 2008, accompanied by MDs and surgical crew. Placed on ventilator, to cardiac rehab nurse, arterial line and PA line pressure monitored. Chest tubes to suction at 20 cm. Lauren cath to gravity drainage. Dressings are dry and intact. See assessment record. All vasoactive drugs are infusing via central line.
[2018-12-23 12:05] LABS: BASOPHILS % (AUTO) 0.3 % (0-1); EOSINOPHILS % (AUTO) 0.3 % (0-6); HEMATOCRIT 40.3 % (42.0-52.0); HEMOGLOBIN 13.8 g/dl (14.0-17.9); LYMPHOCYTES # (AUTO) 0.5 X10'3 (1.1-4.8); MEAN CORPUSCULAR HEMOGLOBIN 32.5 PG (27.0-31.0); MEAN CORPUSCULAR HGB CONC 34.1 g/dL (33.0-36.5); MEAN CORPUSCULAR VOLUME 95.1 FL (78-98); MEAN PLATELET VOLUME 8.1 FL (7.4-10.4); MONOCYTES # (AUTO) 0.7 X10'3 (0-0.9); MONOCYTES % (AUTO) 5.3 % (2-12); NEUTROPHILS # (AUTO) 11.8 X10'3 (1.8-7.7); NEUTROPHILS % (AUTO) 90.1 % (42-75); PLATELET COUNT 147 X10'3 (140-440); RED BLOOD COUNT 4.24 X10'6 (4.70-6.10); RED CELL DISTRIBUTION WIDTH 13.6 % (11.5-14.5); WHITE BLOOD COUNT 13.1 X10'3 (4.5-11.0)
--- NOTE | 2018-12-23 12:17 | NUR ---
Nutrition consult: Pt s/p CABG x 5 today, already provided with heart healthy diet education prior to surgery. Will f/u with pt prior to discharge once stable for heart healthy nutrition and protein reinforcement. Addendum: 12/23/18 at [address] Amended: Links added.
[2018-12-23 12:20] LABS: ALANINE AMINOTRANSFERASE 24 U/L (12-78); ALBUMIN 2.9 G/DL (3.4-5.0); ALBUMIN/GLOBULIN RATIO 1.3 (1.1-1.5); ALKALINE PHOSPHATASE 80 IU/L (46-116); ANION GAP 9 (8-16); ASPARTATE AMINO TRANSFERASE 39 U/L (10-37); BILIRUBIN,TOTAL 0.6 MG/DL (0.1-1.0); BLOOD UREA NITROGEN 19 MG/DL (7-18); BUN/CREATININE RATIO 15.3 (5.4-32.0); CALCIUM 8.9 MG/DL (8.5-10.1); CHLORIDE 109 MMOL/L (99-107); CREATININE 1.24 MG/DL (0.60-1.10); GLUCOSE 102 MG/DL (70-104); MAGNESIUM 2.6 MG/DL (1.5-2.4); PHOSPHORUS 2.1 MG/DL (2.3-4.5); POTASSIUM 4.3 MMOL/L (3.5-5.1); SODIUM 141 MMOL/L (135-145); TOTAL CARBON DIOXIDE 23.4 MMOL/L (24-32); TOTAL PROTEIN 5.2 G/DL (6.4-8.2); eGFR 58 ML/MIN
[2018-12-23 12:31] LABS: ABG BASE EXCESS -1.6 mmol/L (-2.0-3.0); ABG OXYGEN SATURATION 99.1 % (95-98); ABG PCO2 (T) 34.1 mmHg (35.0-45.0); ABG PH (T) 7.427 (7.350-7.450); ABG PO2 (T) 271.1 mmHg (83-108); FCOHb 0.2 % (0.5-1.5); FMetHb 0.2 % (0.3-1.12); FO2Hb 98.7 % (94-100); PEEP 5 cm H2O; RESPIRATORY RATE 12 b/min; TIDAL VOLUME 700 mL; TOTAL HEMOGLOBIN 14.8 G/dl (14.0-17.9)
[2018-12-23 12:35] LABS: PARTIAL THROMBOPLASTIN TIME 28 SECONDS (22-32)
[2018-12-23] MEDS: insulin Lispro (HumaLOG) vial - multi-dose SQ SCH ×2 (13:00→18:00)
[2018-12-23] MEDS: gabapentin 300mg capsule PO SCH ×2 (13:00→23:00)
[2018-12-23] MEDS: potassium Cl 20mEq/100mL bag 100 ML IV PRN ×2 (13:21→15:53)
[2018-12-23] MEDS: sodium chloride 0.45% 1,000 ML IV SCH (13:22)
--- NOTE | 2018-12-23 13:30 | NUR ---
Aspirin allergy: Dr. Brown at bedside and reported to me that he would like to continue Aspirin PO; patient reportedly has an allergy to aspirin: GI bleed. MD will order 81mg instead of 325mg.
--- NOTE | 2018-12-23 13:30 | NUR ---
Radiologist called to notify of possible esophageal perforation/hematoma. However, after speaking with Dr. Brown, patient has a history of achalasia. Orders to not administer medications through NG tube, but it should otherwise be fine; about 100ml of light brown/sana gastric drainage. Dr. Brown also at the bedside and aware of occasional/frequent PVCs; electrolytes being administered per protocol; no new orders at the time. Per Dr. Brown, it could possibly be from the PA line, so Dr. Brown inserted the PA line about 2-3 cm; no significant changes noted.
[2018-12-23] MEDS: morphine 4 MG/ML inj SYRINge IV PRN ×2 (14:25→18:51)
[2018-12-23] MEDS: ceFAZolin 1GM/D5W- ADD-VANTAGE 50 ML IV SCH (15:53)
[2018-12-23] MEDS: albumin (Human) 5% 250ml 250 ML IV PRN (15:53)
[2018-12-23 17:11] LABS: ABG BASE EXCESS -3.8 mmol/L (-2.0-3.0); ABG HCO3 18.8 mmol/L (22.0-26.0); ABG PCO2 (T) 28.1 mmHg (35.0-45.0); ABG PH (T) 7.444 (7.350-7.450); ABG PO2 (T) 71.9 mmHg (83-108); FCOHb 0.6 % (0.5-1.5); FMetHb 0.2 % (0.3-1.12); FO2Hb 94.2 % (94-100); PEEP 5 cm H2O; TOTAL HEMOGLOBIN 14.3 G/dl (14.0-17.9)
[2018-12-23] MEDS ORDERED: sodium bicarbonate (8.4%) 1 mEq/ml syringe IV ONE (17:25)
[2018-12-23] MEDS ORDERED: sodium bicarbonate (8.4%) inj. 1 MEQ/ML ML ONE (17:36)
--- NOTE | 2018-12-23 17:45 | NUR ---
Ventilator Weaning: ABG showed decreased CO2 and Bicarb but otherwise tolerating 30% FiO2 on spontaneous mode for the past 1.5 hours. Orders to administer 1AMP of Bicarb and extubate. Patient appears hemodynamically stable and MD aware of numbers. Patient tolerated extubation at 1715 and placed on 4L NC. Patient alert and oriented and talking. Pt started on Incentive Spirometry with avg volume of 1500ml. Will continue to encourage frequent deep breathing.
[2018-12-23 17:59] LABS: BASOPHILS % (AUTO) 0.1 % (0-1); EOSINOPHILS % (AUTO) 0.1 % (0-6); HEMATOCRIT 40.7 % (42.0-52.0); HEMOGLOBIN 13.9 g/dl (14.0-17.9); LYMPHOCYTES # (AUTO) 0.6 X10'3 (1.1-4.8); MEAN CORPUSCULAR HEMOGLOBIN 32.4 PG (27.0-31.0); MEAN CORPUSCULAR HGB CONC 34.2 g/dL (33.0-36.5); MEAN CORPUSCULAR VOLUME 94.6 FL (78-98); MEAN PLATELET VOLUME 8.7 FL (7.4-10.4); MONOCYTES # (AUTO) 0.4 X10'3 (0-0.9); MONOCYTES % (AUTO) 2.6 % (2-12); NEUTROPHILS # (AUTO) 14.2 X10'3 (1.8-7.7); NEUTROPHILS % (AUTO) 93.2 % (42-75); PLATELET COUNT 171 X10'3 (140-440); RED CELL DISTRIBUTION WIDTH 13.8 % (11.5-14.5); WHITE BLOOD COUNT 15.2 X10'3 (4.5-11.0)
[2018-12-23 18:10] LABS: ALBUMIN 3.2 G/DL (3.4-5.0); ANION GAP 9 (8-16); BLOOD UREA NITROGEN 21 MG/DL (7-18); BUN/CREATININE RATIO 14.8 (5.4-32.0); CALCIUM 8.7 MG/DL (8.5-10.1); CHLORIDE 109 MMOL/L (99-107); CREATININE 1.42 MG/DL (0.60-1.10); GLUCOSE 211 MG/DL (70-104); MAGNESIUM 2.4 MG/DL (1.5-2.4); PHOSPHORUS 2.8 MG/DL (2.3-4.5); POTASSIUM 4.5 MMOL/L (3.5-5.1); SODIUM 140 MMOL/L (135-145); TOTAL CARBON DIOXIDE 22.3 MMOL/L (24-32); eGFR 49 ML/MIN
--- NOTE | 2018-12-23 18:30 | NUR ---
Problems reprioritized. Patient report given, questions answered & plan of care reviewed with Joe CHIN.
--- NOTE | 2018-12-23 18:32 | NUR ---
Patient in room CICU 2008. I have received report from Gordo CHIN and had the opportunity to ask questions and assume patient care.
[2018-12-23] MEDS: magnesium 2GM in 50ml NS 50 ML IV PRN (18:49)
[2018-12-23] MEDS: vancomycin/NS 1 GM ADD-VANTAGE 250 ML IV SCH (20:55)
[2018-12-23] MEDS: insulin glargine (Lantus) pen - multi-dose SQ SCH (21:00)
[2018-12-23] MEDS: docusate sod 100mg capsule PO SCH (23:00)
[2018-12-24] VITALS (24 sets, daily range): BP systolic 129–170; BP diastolic 48–95
[2018-12-24] MEDS: ceFAZolin 1GM/D5W- ADD-VANTAGE 50 ML IV SCH ×3 (00:04→16:19)
[2018-12-24] MEDS: albumin (Human) 5% 250ml 250 ML IV PRN (00:05)
[2018-12-24] MEDS: mupirocin 2% ointment 22GM NS SCH ×3 (00:28→21:49)
[2018-12-24 03:42] LABS: BASOPHILS % (AUTO) 0.1 % (0-1); EOSINOPHILS % (AUTO) 0 % (0-6); HEMATOCRIT 37.5 % (42.0-52.0); HEMOGLOBIN 12.6 g/dl (14.0-17.9); LYMPHOCYTES # (AUTO) 0.7 X10'3 (1.1-4.8); LYMPHOCYTES % (AUTO) 4.1 % (21-51); MEAN CORPUSCULAR HEMOGLOBIN 32.5 PG (27.0-31.0); MEAN CORPUSCULAR HGB CONC 33.6 g/dL (33.0-36.5); MEAN CORPUSCULAR VOLUME 96.8 FL (78-98); MEAN PLATELET VOLUME 8.9 FL (7.4-10.4); MONOCYTES # (AUTO) 1.2 X10'3 (0-0.9); MONOCYTES % (AUTO) 6.8 % (2-12); NEUTROPHILS # (AUTO) 15.8 X10'3 (1.8-7.7); PLATELET COUNT 170 X10'3 (140-440); RED BLOOD COUNT 3.87 X10'6 (4.70-6.10); WHITE BLOOD COUNT 17.7 X10'3 (4.5-11.0)
[2018-12-24 03:56] LABS: PARTIAL THROMBOPLASTIN TIME 33 SECONDS (22-32)
[2018-12-24 04:05] LABS: ALANINE AMINOTRANSFERASE 26 U/L (12-78); ALBUMIN/GLOBULIN RATIO 1.2 (1.1-1.5); ALKALINE PHOSPHATASE 72 IU/L (46-116); ANION GAP 9 (8-16); ASPARTATE AMINO TRANSFERASE 38 U/L (10-37); BILIRUBIN,TOTAL 0.4 MG/DL (0.1-1.0); BLOOD UREA NITROGEN 20 MG/DL (7-18); BUN/CREATININE RATIO 16.4 (5.4-32.0); CALCIUM 8.3 MG/DL (8.5-10.1); CHLORIDE 109 MMOL/L (99-107); CREATININE 1.22 MG/DL (0.60-1.10); GLUCOSE 134 MG/DL (70-104); MAGNESIUM 2.7 MG/DL (1.5-2.4); POTASSIUM 4.4 MMOL/L (3.5-5.1); SODIUM 142 MMOL/L (135-145); TOTAL CARBON DIOXIDE 23.7 MMOL/L (24-32); TOTAL PROTEIN 5.6 G/DL (6.4-8.2); eGFR 59 ML/MIN
[2018-12-24] MEDS: potassium Cl 20mEq/100mL bag 100 ML IV PRN (04:58)
--- NOTE | 2018-12-24 05:35 | NUR ---
insufficient staffing to get pt sitting on side of bed or into a chair as usual.
[2018-12-24] MEDS: insulin regular, human 100 UNIT in normal saline 100ml IV soln 100 ML IV SCH ×2 (05:51)
--- NOTE | 2018-12-24 06:24 | NUR ---
Problems reprioritized. Patient report given, questions answered & plan of care reviewed with Su CHIN.
--- NOTE | 2018-12-24 06:31 | NUR ---
Patient in room CICU 2008. I have received report from Joe CHIN and had the opportunity to ask questions and assume patient care.
[2018-12-24] MEDS: gabapentin 300mg capsule PO SCH ×3 (07:30→21:58)
[2018-12-24] MEDS: docusate sod 100mg capsule PO SCH ×2 (07:30→21:49)
[2018-12-24] MEDS: aspirin 81mg tablet.DR PO SCH (07:34)
[2018-12-24] MEDS ORDERED: atorvastatin 10mg tablet PO SCH (08:00)
[2018-12-24] MEDS ORDERED: metoprolol tartrate 12.5mg (1/2 tablet) PO SCH (08:00)
[2018-12-24] MEDS: vancomycin/NS 1 GM ADD-VANTAGE 250 ML IV SCH ×2 (08:50→21:48)
[2018-12-24] MEDS: insulin Lispro (HumaLOG) vial - multi-dose SQ SCH ×3 (10:00→18:55)
--- NOTE | 2018-12-24 10:19 | NUR ---
Initial: Pt admit with CP, CAD, and STEMI. Pt now s/p CABG x 5 POD 1 extubated yesterday. Pending documentation of PO intake since diet advancement to no concentrated sweets however pt was with 75-100% PO intake prior to surgery as well as while on full liquid diet post-op. Pt has already been provided with heart healthy nutrition therapy education, will f/u with reinforcement of protein and heart healthy nutrition therapy education once stable. [facility] 12/22. Will continue to follow. Recommendations: 1) Continue no concentrated sweets diet 2) Reinforcement for heart healthy and protein needs s/p CABG once stable 3) Monitor need for additional protein 4) Bowel care 5) Wt per rx Addendum: 12/24/18 at [address] Amended: Links added.
[2018-12-24] MEDS: HYDROcodone/acetaminophen 10/325mg tab PO PRN (11:39)
--- NOTE | 2018-12-24 12:00 | NUR ---
Leg wrap removed from left leg. Incision site looks ok, but there is a small portion that reopened when the kerlix was removed as the kerlix was sticking to incision site. Soaked stuck portion of Kerlix thoroughly with a flush, but small tear found. Telfa applied and dressed with Tegaderm.
[2018-12-24] MEDS: nitroGLYCERIN-Tridil 50MG/D5W 250 ML IV PRN (14:23)
[2018-12-24] MEDS ORDERED: metoprolol tartrate 12.5mg (1/2 tablet) PO ONE (14:30)
[2018-12-24] MEDS ORDERED: amLODIPine 5mg tablet PO SCH (14:30)
--- NOTE | 2018-12-24 18:37 | NUR ---
Patient in room CICU 2007. I have received report from Su CHIN and had the opportunity to ask questions and assume patient care.
[2018-12-24] MEDS: metoprolol tartrate 25mg tablet PO SCH (21:50)
[2018-12-24] MEDS: insulin glargine (Lantus) pen - multi-dose SQ SCH (21:54)
[2018-12-25] VITALS (24 sets, daily range): BP systolic 120–165; BP diastolic 49–84
--- NOTE | 2018-12-25 00:30 | NUR ---
Received patient report from Nam CHIN
[2018-12-25] MEDS: ceFAZolin 1GM/D5W- ADD-VANTAGE 50 ML IV SCH (00:46)
[2018-12-25] MEDS: niCARDipine-NS 40mg/200ml IVPB 200 ML IV PRN ×2 (00:46→05:43)
--- NOTE | 2018-12-25 01:01 | NUR ---
Problems reprioritized. Patient report given, questions answered & plan of care reviewed with Anne CHIN.
--- NOTE | 2018-12-25 02:12 | NUR ---
I have reviewed and agree with previous RN's assessment.
[2018-12-25 03:20] LABS: BASOPHILS % (AUTO) 0.1 % (0-1); EOSINOPHILS % (AUTO) 0.1 % (0-6); HEMATOCRIT 34.5 % (42.0-52.0); HEMOGLOBIN 11.7 g/dl (14.0-17.9); LYMPHOCYTES % (AUTO) 6.1 % (21-51); MEAN CORPUSCULAR HEMOGLOBIN 32.8 PG (27.0-31.0); MEAN CORPUSCULAR VOLUME 96.5 FL (78-98); MEAN PLATELET VOLUME 9.2 FL (7.4-10.4); MONOCYTES # (AUTO) 1.6 X10'3 (0-0.9); MONOCYTES % (AUTO) 10.3 % (2-12); NEUTROPHILS # (AUTO) 12.9 X10'3 (1.8-7.7); NEUTROPHILS % (AUTO) 83.4 % (42-75); PLATELET COUNT 157 X10'3 (140-440); RED BLOOD COUNT 3.58 X10'6 (4.70-6.10); RED CELL DISTRIBUTION WIDTH 14.1 % (11.5-14.5); WHITE BLOOD COUNT 15.5 X10'3 (4.5-11.0)
[2018-12-25 03:38] LABS: ALBUMIN 2.9 G/DL (3.4-5.0); ANION GAP 8 (8-16); BLOOD UREA NITROGEN 26 MG/DL (7-18); CALCIUM 8.2 MG/DL (8.5-10.1); CHLORIDE 107 MMOL/L (99-107); CREATININE 1.04 MG/DL (0.60-1.10); GLUCOSE 165 MG/DL (70-104); MAGNESIUM 2.3 MG/DL (1.5-2.4); PHOSPHORUS 3.6 MG/DL (2.3-4.5); POTASSIUM 4.4 MMOL/L (3.5-5.1); SODIUM 139 MMOL/L (135-145); TOTAL CARBON DIOXIDE 23.6 MMOL/L (24-32); eGFR 71 ML/MIN
[2018-12-25] MEDS: potassium Cl 20mEq/100mL bag 100 ML IV PRN ×2 (03:53→04:54)
[2018-12-25] MEDS: nitroGLYCERIN-Tridil 50MG/D5W 250 ML IV PRN (03:55)
[2018-12-25] MEDS: magnesium 2GM in 50ml NS 50 ML IV PRN ×2 (05:44→19:01)
--- NOTE | 2018-12-25 06:16 | NUR ---
Patient report given to Jose CHIN
--- NOTE | 2018-12-25 06:17 | NUR ---
Patient in room CICU 2008. I have received report from Carlos and had the opportunity to ask questions and assume patient care.
[2018-12-25] MEDS ORDERED: furosemide 40mg/4ml inj IV ONE (06:50)
[2018-12-25 07:35] LABS: ACTIVATED CLOTTING TIME 119 SEC (101-148)
[2018-12-25 07:35] LABS: ACT @ 1.70 U 339 SEC (193-297); ACT @ 2.84 U 444 SEC (260-420); BASELINE ACT 168 SEC (101-148)
[2018-12-25] MEDS: clopidogrel 75mg tablet PO SCH (07:45)
[2018-12-25] MEDS: pantoprazole 40mg Tablet.DR PO SCH (07:45)
[2018-12-25] MEDS: atorvastatin 20mg tablet PO SCH (07:46)
[2018-12-25] MEDS: amLODIPine 5mg tablet PO SCH (07:47)
[2018-12-25] MEDS: gabapentin 300mg capsule PO SCH (07:47)
[2018-12-25] MEDS: aspirin 81mg tablet.DR PO SCH (07:48)
[2018-12-25] MEDS: docusate sod 100mg capsule PO SCH ×2 (07:48→19:55)
[2018-12-25] MEDS: mupirocin 2% ointment 22GM NS SCH (07:49)
[2018-12-25] MEDS: metoprolol tartrate 25mg tablet PO SCH ×2 (07:49→19:55)
[2018-12-25] MEDS: insulin Lispro (HumaLOG) vial - multi-dose SQ SCH ×3 (09:00→20:01)
[2018-12-25] MEDS: sodium chloride 0.45% 1,000 ML IV SCH (11:38)
--- NOTE | 2018-12-25 13:33 | NUR ---
0760 Dr Brown here. Ld discontinued the ct x 2, orders to dc PA line and FC received and changes to PO meds received. 0845- Patient very particular re: meds/ care. declining baby aspirin and statin, states allergic to aspirin caused rectal bleeding and statins "kill people". Attempted to educate patient, will report to MD or PA. 1300- Reported refusal of meds as noted above. Ld spoke with patient and patient now states he will take the baby aspirin "every other day".
--- NOTE | 2018-12-25 14:14 | NUR ---
1400- ambulated patient 50 ft. back to bed, dc'd F/C, patient now in a sustained bigeminy, reported to Dr Brown and Ld, hold off on transfer and repeat BMP.
[2018-12-25 15:09] LABS: ANION GAP 7 (8-16); BLOOD UREA NITROGEN 24 MG/DL (7-18); BUN/CREATININE RATIO 19.2 (5.4-32.0); CALCIUM 8.2 MG/DL (8.5-10.1); CHLORIDE 104 MMOL/L (99-107); CREATININE 1.25 MG/DL (0.60-1.10); GLUCOSE 138 MG/DL (70-104); MAGNESIUM 2.3 MG/DL (1.5-2.4); PHOSPHORUS 3.4 MG/DL (2.3-4.5); SODIUM 138 MMOL/L (135-145); TOTAL CARBON DIOXIDE 26.7 MMOL/L (24-32); eGFR 57 ML/MIN
[2018-12-25 15:11] LABS: ABG BASE EXCESS 1.3 mmol/L (-2.0-3.0); ABG HCO3 24.6 mmol/L (22.0-26.0); ABG OXYGEN SATURATION 96.9 % (95-98); ABG PCO2 (T) 35.5 mmHg (35.0-45.0); ABG PH (T) 7.459 (7.350-7.450); ABG PO2 (T) 85.9 mmHg (83-108); FCOHb 1.2 % (0.5-1.5); FMetHb 0.2 % (0.3-1.12); FO2Hb 95.5 % (94-100); TOTAL HEMOGLOBIN 16.1 G/dl (14.0-17.9)
[2018-12-25 15:14] LABS: POTASSIUM 4.1 MMOL/L (3.5-5.1)
[2018-12-25] MEDS: potassium Cl 20 mEq SR tablet PO PRN (15:36)
--- NOTE | 2018-12-25 17:25 | NUR ---
1715- accu check 68. patient refuses dex drink, agreed to eat a large popsicle. No s/s of hypoglycemia, educated patient on s/s of hypoglycemia. Continue to monitor patient.
--- NOTE | 2018-12-25 18:25 | NUR ---
Problems reprioritized. Patient report given, questions answered & plan of care reviewed with Sina.
--- NOTE | 2018-12-25 18:29 | NUR ---
assumed care from Dahiana CHIN no questions or concerns after assuming care
[2018-12-25] MEDS: insulin glargine (Lantus) pen - multi-dose SQ SCH (20:03)
[2018-12-25] MEDS: lisinopril 10 MG tablet PO SCH (21:16)
--- NOTE | 2018-12-25 21:25 | NUR ---
PATIENT BOLT UPRIGHT IN BED WATCHING TELEVISION RR EVEN UN LABORED DENIES PAIN, NO OBSERVABLE S/S OF ACUTE STRESS AT THIS TIME WILL CONTINUE TO MONITOR
--- NOTE | 2018-12-25 23:52 | NUR ---
PATIENT IN BED WATCHING TELEVISION REPOSITIONED PATIENT CHANGED LINENS, PATIENT DECLINED COVERS STATES " NOT RIGHT NOW I AM HOT." RR EVEN UN LABORED NO OBSERVABLE S/S OF ACUTE STRESS AT THIS TIME WILL CONTINUE TO MONITOR
[2018-12-26] VITALS (18 sets, daily range): BP systolic 107–139; BP diastolic 51–76
[2018-12-26] MEDS: insulin regular, human 100 UNIT in normal saline 100ml IV soln 100 ML IV SCH ×2 (00:10)
--- NOTE | 2018-12-26 01:23 | NUR ---
PATIENT IN BED COVERS ON EYES CLOSED RR EVEN UN LABORED NO OBSERVABLE S/S OF ACUTE STRESS AT THIS TIME
[2018-12-26 03:16] LABS: BASOPHILS % (AUTO) 0.3 % (0-1); EOSINOPHILS # (AUTO) 0.1 X10'3 (0-0.9); EOSINOPHILS % (AUTO) 0.6 % (0-6); HEMATOCRIT 37.4 % (42.0-52.0); HEMOGLOBIN 12.7 g/dl (14.0-17.9); LYMPHOCYTES # (AUTO) 1.2 X10'3 (1.1-4.8); LYMPHOCYTES % (AUTO) 10.8 % (21-51); MEAN CORPUSCULAR HEMOGLOBIN 32.3 PG (27.0-31.0); MEAN CORPUSCULAR HGB CONC 33.8 g/dL (33.0-36.5); MEAN CORPUSCULAR VOLUME 95.4 FL (78-98); MEAN PLATELET VOLUME 9.1 FL (7.4-10.4); MONOCYTES # (AUTO) 1.6 X10'3 (0-0.9); MONOCYTES % (AUTO) 14.6 % (2-12); NEUTROPHILS # (AUTO) 7.9 X10'3 (1.8-7.7); NEUTROPHILS % (AUTO) 73.7 % (42-75); PLATELET COUNT 168 X10'3 (140-440); RED BLOOD COUNT 3.92 X10'6 (4.70-6.10); RED CELL DISTRIBUTION WIDTH 13.9 % (11.5-14.5); WHITE BLOOD COUNT 10.7 X10'3 (4.5-11.0)
--- NOTE | 2018-12-26 03:19 | NUR ---
PATIENT IN BED COVERS OFF EYES CLOSED RR EVEN UN LABORED NO OBSERVABLE S/S OF ACUTE STRESS AT THIS TIME
[2018-12-26 03:40] LABS: ALBUMIN 2.9 G/DL (3.4-5.0); ANION GAP 7 (8-16); BLOOD UREA NITROGEN 25 MG/DL (7-18); BUN/CREATININE RATIO 23.6 (5.4-32.0); CALCIUM 8.4 MG/DL (8.5-10.1); CHLORIDE 105 MMOL/L (99-107); CREATININE 1.06 MG/DL (0.60-1.10); GLUCOSE 63 MG/DL (70-104); MAGNESIUM 2.7 MG/DL (1.5-2.4); POTASSIUM 4.3 MMOL/L (3.5-5.1); SODIUM 139 MMOL/L (135-145); TOTAL CARBON DIOXIDE 27.4 MMOL/L (24-32); eGFR 69 ML/MIN
[2018-12-26] MEDS: potassium Cl 20 mEq SR tablet PO PRN (03:52)
[2018-12-26] MEDS: HYDROcodone/acetaminophen 10/325mg tab PO PRN (03:56)
--- NOTE | 2018-12-26 05:47 | NUR ---
PATIENT IN BED REFUSING SCD 'S STATING " I AM HOT." OTHER THAN THAT PATIENT APPEARS TO BE IN A GOOD MOOD WATCHING MORNING NEWS ON THE TELEVISION RR EVEN UN LABORED NO OBSERVABLE S/S OF ACUTE STRESS AT THIS TIME
--- NOTE | 2018-12-26 06:20 | NUR ---
Patient in room CICU 2007. I have received report from Sina CHIN and had the opportunity to ask questions and assume patient care.
--- NOTE | 2018-12-26 06:27 | NUR ---
SBAR TO LIZA CHIN NO QUESTIONS OR CONCERNS AFTER ASSUMING CARE
[2018-12-26] MEDS ORDERED: potassium Cl 20mEq/100mL bag 100 ML IV PRN (06:55)
[2018-12-26] MEDS ORDERED: magnesium 4gm in 100ml NS 100 ML IV PRN (06:55)
[2018-12-26] MEDS ORDERED: magnesium 2GM in 50ml NS 50 ML IV PRN (06:55)
[2018-12-26] MEDS ORDERED: potassium Cl 20 mEq SR tablet PO PRN (06:55)
[2018-12-26] MEDS ORDERED: magnesium citrate 296ml oral solution PO ONE (06:55)
[2018-12-26] MEDS: magnesium Cl slow-release 64mg tablet PO SCH ×2 (08:00→20:44)
[2018-12-26] MEDS: amLODIPine 5mg tablet PO SCH (08:48)
[2018-12-26] MEDS: potassium Cl 20 mEq SR tablet PO SCH ×2 (08:49→20:44)
[2018-12-26] MEDS: docusate sod 100mg capsule PO SCH ×2 (08:49→20:44)
[2018-12-26] MEDS: aspirin 81mg tablet.DR PO SCH (08:51)
[2018-12-26] MEDS: atorvastatin 20mg tablet PO SCH (08:51)
[2018-12-26] MEDS: clopidogrel 75mg tablet PO SCH (08:51)
[2018-12-26] MEDS: metoprolol tartrate 25mg tablet PO SCH ×2 (08:52→20:46)
[2018-12-26] MEDS: pantoprazole 40mg Tablet.DR PO SCH (08:52)
[2018-12-26] MEDS: insulin Lispro (HumaLOG) vial - multi-dose SQ SCH ×3 (09:04→18:55)
--- NOTE | 2018-12-26 10:28 | NUR ---
Recently check blood glucose r/t patient c/o feel clammy, Noted 202. Will continue to monitor.
--- NOTE | 2018-12-26 12:27 | NUR ---
Gave report to Addis CHIN on ACCE unit.
--- NOTE | 2018-12-26 12:30 | NUR ---
Patient in room MED 316. I have received report from [facility] and had the opportunity to ask questions and assume patient care.
--- NOTE | 2018-12-26 14:22 | NUR ---
Transferred patient to room 316 on ACCE at this time, tolerated well. Refused to get up into chair,requested bed. Care transferred to Addis CHIN.
--- NOTE | 2018-12-26 14:36 | NUR ---
Pt. arrived from CICU. Pt. does not have any complaints. Pt. made comfortable, vital signs taken, and placed on monitor. No wounds noted.
--- NOTE | 2018-12-26 16:39 | NUR ---
Page to Case Management [address] [place] [address]. The patient's brother and [id number] came in and spoke with us about the patient's home environment. They stated that his house is covered in trash and old food with narrow hallways. He may need to go to rehab while they figure out how to get it sanitary for him to come home. Do we know of any services that could possibly help with this?
--- NOTE | 2018-12-26 17:56 | NUR ---
Orienteer documentation: I have reviewed and agree with all interventions, assessments performed and documented by Addis.
--- NOTE | 2018-12-26 18:07 | NUR ---
Problems reprioritized. Patient report given, questions answered & plan of care reviewed with ELSY Sahni.
--- NOTE | 2018-12-26 18:15 | NUR ---
Patient in room MED 316. I have received report from ELSY Mancini and had the opportunity to ask questions and assume patient care.
[2018-12-26] MEDS: lisinopril 10 MG tablet PO SCH (20:46)
[2018-12-26] MEDS: insulin glargine (Lantus) pen - multi-dose SQ SCH (20:52)
[2018-12-27 02:00] VITALS: BP 139/59
[2018-12-27 04:59] LABS: BASOPHILS % (AUTO) 0.2 % (0-1); EOSINOPHILS # (AUTO) 0.3 X10'3 (0-0.9); EOSINOPHILS % (AUTO) 3.1 % (0-6); HEMATOCRIT 38.5 % (42.0-52.0); LYMPHOCYTES # (AUTO) 1.1 X10'3 (1.1-4.8); LYMPHOCYTES % (AUTO) 13.5 % (21-51); MEAN CORPUSCULAR HEMOGLOBIN 32.4 PG (27.0-31.0); MEAN CORPUSCULAR HGB CONC 33.7 g/dL (33.0-36.5); MEAN CORPUSCULAR VOLUME 96.1 FL (78-98); MEAN PLATELET VOLUME 8.7 FL (7.4-10.4); MONOCYTES % (AUTO) 11.7 % (2-12); NEUTROPHILS # (AUTO) 5.9 X10'3 (1.8-7.7); NEUTROPHILS % (AUTO) 71.5 % (42-75); PLATELET COUNT 174 X10'3 (140-440); RED BLOOD COUNT 4.01 X10'6 (4.70-6.10); RED CELL DISTRIBUTION WIDTH 13.9 % (11.5-14.5); WHITE BLOOD COUNT 8.3 X10'3 (4.5-11.0)
[2018-12-27 05:13] LABS: ALBUMIN 2.7 G/DL (3.4-5.0); ANION GAP 8 (8-16); BLOOD UREA NITROGEN 20 MG/DL (7-18); BUN/CREATININE RATIO 19.8 (5.4-32.0); CALCIUM 8.6 MG/DL (8.5-10.1); CHLORIDE 105 MMOL/L (99-107); CREATININE 1.01 MG/DL (0.60-1.10); GLUCOSE 133 MG/DL (70-104); MAGNESIUM 2.4 MG/DL (1.5-2.4); POTASSIUM 4.6 MMOL/L (3.5-5.1); SODIUM 138 MMOL/L (135-145); TOTAL CARBON DIOXIDE 24.6 MMOL/L (24-32); eGFR 73 ML/MIN
[2018-12-27 06:00] VITALS: BP 152/67
--- NOTE | 2018-12-27 06:22 | NUR ---
Problems reprioritized. Patient report given, questions answered & plan of care reviewed with ELSY Mcintyre and ELSY Flores.
[2018-12-27] MEDS: potassium Cl 20 mEq SR tablet PO SCH (08:00)
[2018-12-27] MEDS: docusate sod 100mg capsule PO SCH (08:00)
--- NOTE | 2018-12-27 08:20 | NUR ---
Made Dr. Brown know about the incomplete med req.
[2018-12-27] MEDS: pantoprazole 40mg Tablet.DR PO SCH (08:36)
[2018-12-27] MEDS: aspirin 81mg tablet.DR PO SCH (08:36)
[2018-12-27] MEDS: metoprolol tartrate 25mg tablet PO SCH (08:39)
[2018-12-27] MEDS: clopidogrel 75mg tablet PO SCH (08:42)
[2018-12-27] MEDS: atorvastatin 20mg tablet PO SCH (08:42)
[2018-12-27] MEDS: amLODIPine 5mg tablet PO SCH (08:42)
[2018-12-27] MEDS: magnesium Cl slow-release 64mg tablet PO SCH (08:42)
[2018-12-27] MEDS: insulin Lispro (HumaLOG) vial - multi-dose SQ SCH ×2 (08:56→13:19)
--- NOTE | 2018-12-27 10:10 | NUR ---
Called Ld CHEN to make him aware of patient's HR dropping down to low 41 during his nap, woke him up, HR returned to above 60, and performed EKG. Waiting assistant professor of religion back.
[2018-12-27 11:00] VITALS: BP 131/78
--- NOTE | 2018-12-27 11:55 | NUR ---
Ld CHEN returned phone call, made him aware of patient's HR dropping into low 40's. States he'll call back after discussing with Stephanie.
--- NOTE | 2018-12-27 12:45 | NUR ---
Report given to Marquis Paulino at this time.
--- NOTE | 2018-12-27 13:08 | NUR ---
Paged manager social work re: to assess patient prior to discharge.
--- NOTE | 2018-12-27 13:30 | NUR ---
Orientee documentation and med administration: I have reviewed and agree with all interventions, assessments performed and documented by Sandra CHIN.
--- NOTE | 2018-12-27 13:34 | NUR ---
Report has been called to Addis Dickson at [facility]. Patients IV removed with catheter intact, and site was clear. Pt tolerated well. Pt helped to dress, all belongings accounted for and verified with patient. Pt helped to wheelchair. Pt discharged with paperwork going to Care A livery car driver.
--- NOTE | 2018-12-27 13:35 | NUR ---
Pt belongings accounted for and verified with patialejandrort Addendum: 12/27/18 at 1342 by Sandra Venegas RN notes not tamara
--- NOTE | 2018-12-27 13:40 | NUR ---
Patient remains stable VSS. Dressing to sternal incision CDI. Former chest tube site covered with CDI dressing. L inner knee surgical site HELADIO with no s/s of complications. Denied any pain. IV removed from LFA cath intact and site free from S/S complications and pt tolerated well. All belongings reviewed with pt and accounted for. Called report to Marquis Paulino. Escorted out via wheelchair and left with [employer]
--- NOTE | 2018-12-27 13:40 | NUR ---
Patient has remained stable VSS. He denied any pain. Dressings to sternal incision, chest tube site CDI. L inner knee surgical site HELADIO and free from s/s complications. IV removed from LFA cath intact, pt tolerated well, and no s/s complications. Report called to Lora Mancini. All belongings verified with patient. Pt escorted in wheelchair to [employer] cargo van and departed hospital w/o incident.
--- NOTE | 2018-12-27 15:55 | NUR ---
Reassessment: Pt discharged prior to RD being available for bedside visit. Pt had already received heart healthy nutrition therapy education and was documented with 75-100% PO intake on no concentrated sweets diet prior to discharge meeting nutrient needs. Addendum: 12/27/18 at [address] Amended: Links added.
== END 2018-12-27 13:33 | DRG 233 ==
LOC: ER 20:10 → PCU 3S 23:23 → MED 3N 12-20 16:38 → CICU 2S 12-23 09:35 → MED 3N 12-26 14:25
PROVIDERS: ADMIT Internal Medicine Interventional Cardiology; ATTEND Thoracic Surgery (Cardiothoracic Vascular Surgery)
PROC: 4A023N7 Measurement of Cardiac Sampling and Pressure, Left Heart, Percutaneous Approach (ICD-10-PCS; 2018-12-19)
PROC: B2111ZZ Fluoroscopy of Multiple Coronary Arteries using Low Osmolar Contrast (ICD-10-PCS; 2018-12-19)
PROC: B2151ZZ Fluoroscopy of Left Heart using Low Osmolar Contrast (ICD-10-PCS; 2018-12-19)
PROC: 021309W Bypass Coronary Artery, Four or More Arteries from Aorta with Autologous Venous Tissue, Open Approach (ICD-10-PCS; 2018-12-23)
PROC: 06BQ4ZZ Excision of Left Saphenous Vein, Percutaneous Endoscopic Approach (ICD-10-PCS; 2018-12-23)
PROC: 02HP32Z Insertion of Monitoring Device into Pulmonary Trunk, Percutaneous Approach (ICD-10-PCS; 2018-12-23)
PROC: 4A133B3 Monitoring of Arterial Pressure, Pulmonary, Percutaneous Approach (ICD-10-PCS; 2018-12-23)
PROC: 4A1239Z Monitoring of Cardiac Output, Percutaneous Approach (ICD-10-PCS; 2018-12-23)
PROC: 02HV33Z Insertion of Infusion Device into Superior Vena Cava, Percutaneous Approach (ICD-10-PCS; 2018-12-23)
PROC: B24BZZ4 Ultrasonography of Heart with Aorta, Transesophageal (ICD-10-PCS; 2018-12-23)
PROC: 5A1221Z Performance of Cardiac Output, Continuous (ICD-10-PCS; 2018-12-23)
PROC: 02100Z9 Bypass Coronary Artery, One Artery from Left Internal Mammary, Open Approach (ICD-10-PCS; principal; 2018-12-23 07:00)
DX: I21.19 ST elevation (STEMI) myocardial infarction involving other coronary artery of inferior wall (principal); I50.43 Acute on chronic combined systolic (congestive) and diastolic (congestive) heart failure; N17.9 Acute kidney failure, unspecified; E78.5 Hyperlipidemia, unspecified; I25.110 Atherosclerotic heart disease of native coronary artery with unstable angina pectoris; E11.51 Type 2 diabetes mellitus with diabetic peripheral angiopathy without gangrene; E66.9 Obesity, unspecified; E78.00 Pure hypercholesterolemia, unspecified; M79.661 Pain in right lower leg; F17.290 Nicotine dependence, other tobacco product, uncomplicated; I11.0 Hypertensive heart disease with heart failure; I27.20 Pulmonary hypertension, unspecified; I49.3 Ventricular premature depolarization; J44.9 Chronic obstructive pulmonary disease, unspecified; Z79.02 Long term (current) use of antithrombotics/antiplatelets; Z80.7 Family history of other malignant neoplasms of lymphoid, hematopoietic and related tissues; Z85.820 Personal history of malignant melanoma of skin; Z88.6 Allergy status to analgesic agent; I25.2 Old myocardial infarction; Z95.5 Presence of coronary angioplasty implant and graft; Z68.32 Body mass index [BMI] 32.0-32.9, adult; Z88.8 Allergy status to other drugs, medicaments and biological substances; Z79.899 Other long term (current) drug therapy
CPT/HCPCS: 0232T; 93312; 93325; 93458; 96365; 96367; 99291; C9606; 36415; 36600; 71045; 71046; 73700; 80048; 80053; 80061; 80305; 81003; 82330; 82435; 82803; 82947; 82948; 83036; 83735; 84100; 84132; 84295; 84484; 85018; 85025; 85347; 85384; 85576; 85610; 85730; 86885; 86900; 86901; 86920; 87081; 93005; 93880; 93970; 94002; 94010; 94668; 94760; 97116; 97161; 97530; A4618; A4620; A6258; A6402; A6449; A7000; A7048; C1713; C1751; C1760; C1769; C9113; G0378; J0131; J0171; J0360; J0690; J1265; J1644; J1815; J1940; J2001; J2060; J2150; J2250; J2270; J2370; J2440; J2704; J2720; J2795; J2930; J3370; J3475; J3480; J3490; J7030; J7040; J7050; J7060; J7120; P9045; P9047; Q9967

== ENCOUNTER 2020-10-16 17:48 | Emergency (ER) | payer BC, MEDICARE ==
[~2020-10-16] VITALS: Ht 190.5 cm; Wt 113.6 kg
[~2020-10-16 17:48] MED LIST changes: +ALBU18HF2 INH; -AMLO2.5T2 PO; -CLOP75TA15 PO; -LISI-600 PO; +LISI10TA27 PO; +METO-395 PO; -PANT40TA4 PO; -heparin 10,000 units/1 ML INJ ONE; -papaverine 30 mg/ml 2ml inj. ONE; -potassium Cl 2 mEq/ml inj IV ONE
--- NOTE | 2020-10-16 17:58 | NUR ---
PT STATED HE STOPPED ALL MEDICATIONS A LONG TIME AGO. EDUCATED ABOUT IMPORTANCE.
[2020-10-16] MEDS ORDERED: BISA-78 PO (19:39)
[2020-10-16] MEDS ORDERED: bisacodyl 5mg tablet.DR PO ONE (19:40)
[2020-10-16] MEDS ORDERED: POLY119P2 PO (19:42)
--- NOTE | 2020-10-16 20:02 | NUR ---
patient received dc instructions and acknowledged understanding. patient vs wnl. patient waiting in the lobby in our wheelchair for friend to chart picker. patient dc home.
[2020-10-16 20:03] VITALS: BP 187/80
== END 2020-10-16 20:04 | disposition home or self-care (01) ==
LOC: ER 17:49
DX: K59.00 Constipation, unspecified (principal); I25.10 Atherosclerotic heart disease of native coronary artery without angina pectoris; E78.00 Pure hypercholesterolemia, unspecified; I10 Essential (primary) hypertension; I25.2 Old myocardial infarction; E11.9 Type 2 diabetes mellitus without complications; Z98.890 Other specified postprocedural states; Z60.2 Problems related to living alone; Z88.8 Allergy status to other drugs, medicaments and biological substances; Z79.899 Other long term (current) drug therapy
CPT/HCPCS: 99283

== ENCOUNTER 2020-12-31 15:32 | Emergency (ER) | payer MEDICARE ==
[~2020-12-31] VITALS: Ht 190.5 cm; Wt 106.7 kg
[~2020-12-31 15:32] MED LIST changes: +BISA-78 PO; +POLY119P2 PO
[2020-12-31 15:50] VITALS: BP 189/104
[2020-12-31] MEDS ORDERED: HYDROcodone/acetaminophen 5mg/325mg tablet PO ONE (20:35)
== END 2020-12-31 20:55 | disposition home or self-care (01) ==
LOC: ER 15:32
DX: M54.50 Low back pain, unspecified (principal); G89.29 Other chronic pain; I25.10 Atherosclerotic heart disease of native coronary artery without angina pectoris; E78.00 Pure hypercholesterolemia, unspecified; I10 Essential (primary) hypertension; I25.2 Old myocardial infarction; E11.9 Type 2 diabetes mellitus without complications; Z98.890 Other specified postprocedural states; Z60.2 Problems related to living alone; Z88.8 Allergy status to other drugs, medicaments and biological substances; Z79.899 Other long term (current) drug therapy
CPT/HCPCS: 99283

== ENCOUNTER 2021-01-04 18:16 | Emergency (ER) | payer MEDICARE ==
[~2021-01-04] VITALS: Ht 193 cm; Wt 102.3 kg
[2021-01-04 19:09] LABS: BASOPHILS % (AUTO) 0.3 % (0-1); EOSINOPHILS # (AUTO) 0.1 X10'3 (0-0.9); EOSINOPHILS % (AUTO) 1.2 % (0-6); HEMATOCRIT 55.4 % (42.0-52.0); LYMPHOCYTES # (AUTO) 0.8 X10'3 (1.1-4.8); LYMPHOCYTES % (AUTO) 9.1 % (21-51); MEAN CORPUSCULAR HEMOGLOBIN 31.5 PG (27.0-31.0); MEAN CORPUSCULAR HGB CONC 33.9 g/dL (33.0-36.5); MEAN CORPUSCULAR VOLUME 93.1 FL (78-98); MEAN PLATELET VOLUME 7.7 FL (7.4-10.4); MONOCYTES # (AUTO) 0.6 X10'3 (0-0.9); MONOCYTES % (AUTO) 7.8 % (2-12); NEUTROPHILS # (AUTO) 6.8 X10'3 (1.8-7.7); NEUTROPHILS % (AUTO) 81.6 % (42-75); PLATELET COUNT 212 X10'3 (140-440); RED BLOOD COUNT 5.95 X10'6 (4.70-6.10); RED CELL DISTRIBUTION WIDTH 16.2 % (11.5-14.5); WHITE BLOOD COUNT 8.3 X10'3 (4.5-11.0)
[2021-01-04 19:13] LABS: HEMOGLOBIN 18.8 g/dl (14.0-17.9)
[2021-01-04 19:14] LABS: ALANINE AMINOTRANSFERASE 19 U/L (12-78); ALBUMIN 3.7 G/DL (3.4-5.0); ALBUMIN/GLOBULIN RATIO 1.1 (1.1-1.5); ALKALINE PHOSPHATASE 112 IU/L (46-116); ANION GAP 10 (8-16); ASPARTATE AMINO TRANSFERASE 18 U/L (10-37); BILIRUBIN,TOTAL 0.8 MG/DL (0.1-1.0); BLOOD UREA NITROGEN 18 MG/DL (7-18); BUN/CREATININE RATIO 9.1 (5.4-32.0); CALCIUM 8.7 MG/DL (8.5-10.1); CHLORIDE 106 MMOL/L (99-107); CREATININE 1.98 MG/DL (0.60-1.10); GLUCOSE 98 MG/DL (70-104); POTASSIUM 4.7 MMOL/L (3.5-5.1); SODIUM 142 MMOL/L (135-145); TOTAL CARBON DIOXIDE 25.6 MMOL/L (24-32); TOTAL PROTEIN 7.1 G/DL (6.4-8.2); eGFR 33 ML/MIN
[2021-01-04] MEDS ORDERED: ACET-1995 PO (19:28)
[2021-01-04] MEDS: HYDROcodone/acetaminophen 5mg/325mg tablet PO ONE (20:22)
[2021-01-04] MEDS: normal saline 500ml IV soln 500 ML IV ONE (20:22)
[2021-01-04 20:56] LABS: CLARITY,URINE CLEAR (Clear); COLOR,URINE AMBER (Yellow); UA COLLECTION TYPE STRAIGHT CATH
[2021-01-04 20:57] LABS: GLUCOSE, URINE NEGATIVE (Neg); KETONES,URINE NEGATIVE (Neg); LEUKOCYTE ESTERASE ,URINE NEGATIVE (Neg); NITRITES, URINE NEGATIVE (Neg); OCCULT BLOOD,URINE SMALL (Neg); PROTEIN,URINE 30 mg/dl (Neg); UROBILINOGEN,URINE 0.2 E.U/dL (0.2-1.0)
[2021-01-04] MEDS ORDERED: OXYC-145 PO (21:15)
[2021-01-04 21:29] LABS: BACTERIA,URINE 1+ /HPF (Neg); MUCUS STRANDS NONE SEEN /LPF (Neg); SQUAMOUS EPITHELIAL CELL,UR FEW /LPF (FEW); WBC,URINE 0-4 /HPF (0-4)
[2021-01-04 21:30] LABS: CAL OXALATE CRYSTALS FEW /HPF (NEGATIVE); HYALINE CASTS 0-3 /LPF (NEGATIVE)
[2021-01-04 22:11] VITALS: BP 142/86
== END 2021-01-04 22:13 | disposition home or self-care (01) ==
LOC: ER 18:17
DX: N20.0 Calculus of kidney (principal); N17.9 Acute kidney failure, unspecified; I10 Essential (primary) hypertension; I25.10 Atherosclerotic heart disease of native coronary artery without angina pectoris; E78.00 Pure hypercholesterolemia, unspecified; I25.2 Old myocardial infarction; F17.210 Nicotine dependence, cigarettes, uncomplicated; J44.9 Chronic obstructive pulmonary disease, unspecified; Z98.890 Other specified postprocedural states; Z95.5 Presence of coronary angioplasty implant and graft; Z88.8 Allergy status to other drugs, medicaments and biological substances; Z79.899 Other long term (current) drug therapy
CPT/HCPCS: 36415; 74176; 80053; 81001; 83880; 85025; 93005; 99285; J7040

== ENCOUNTER 2021-04-03 11:50 | Emergency (ER) | payer MEDICARE ==
[~2021-04-03] VITALS: Ht 193 cm; Wt 120.0 kg
[~2021-04-03 11:50] MED LIST changes: +ACET-1995 PO; -ALBU18HF2 INH; -BISA-78 PO; -LISI10TA27 PO; -METO-395 PO; +OXYC-145 PO; -POLY119P2 PO
[2021-04-03] MEDS ORDERED: POLY119P2 PO (12:29)
--- NOTE | 2021-04-03 13:00 | NUR ---
DR. ALBARADO AT BEDSIDE.
--- NOTE | 2021-04-03 14:00 | NUR ---
PT ATTEMPTING TO CALL FAMILY FOR RIDE HOME.
[2021-04-03 15:07] VITALS: BP 148/80
== END 2021-04-03 15:10 | disposition home or self-care (01) ==
LOC: ER 11:50
DX: K59.00 Constipation, unspecified (principal); I25.10 Atherosclerotic heart disease of native coronary artery without angina pectoris; E78.00 Pure hypercholesterolemia, unspecified; I10 Essential (primary) hypertension; I25.2 Old myocardial infarction; E11.9 Type 2 diabetes mellitus without complications; F17.200 Nicotine dependence, unspecified, uncomplicated; Z98.890 Other specified postprocedural states; Z60.2 Problems related to living alone; Z88.8 Allergy status to other drugs, medicaments and biological substances; Z79.899 Other long term (current) drug therapy
CPT/HCPCS: 99284

== ENCOUNTER 2022-12-10 10:17 | Inpatient (IN) | payer MEDICARE ==
[~2022-12-10] VITALS: Ht 192.4 cm; Wt 113.6 kg
[~2022-12-10 10:17] MED LIST changes: +ALBU8HFA PO; +ASPI81TA53 PO; +ATOR20TA66 PO; +BUDE10.22 INH; +EMPA10TA PO; +FURO-150 PO; +METO-395 PO; -OXYC-145 PO; +SACU1TAB PO
[2022-12-10] MEDS ORDERED: furosemide 40mg tablet PO ONE (11:05)
[2022-12-10] MEDS ORDERED: furosemide 20MG tablet PO ONE (11:05)
--- NOTE | 2022-12-10 11:23 | NUR ---
Paged Case Management ER Bed 8 Tyson CHIN RE: Oli Nath. Dr. Guerin wanted patient to have case planner request home health service for this patient upon discharge
--- NOTE | 2022-12-10 11:27 | NUR ---
Per ELSY [facility], patient has already home health service started as he was just discharged from [facility] recently. She said I do not have to do anything at this time, that home health agency can follow up with him.
--- NOTE | 2022-12-10 12:20 | NUR ---
Called Pricila (sister in law) to find out if she can give patient a ride home, no answer. Left a voicemail message to call me back
--- NOTE | 2022-12-10 13:21 | NUR ---
Dr. Guerin and Disability Benefits Specialist Eliza spoke to the patient and the sister in law at bedside regarding the left lower leg wound. Patient will stay instead of discharge status due to open wound on the left leg. Charge nurse Coral aware of this change
[2022-12-10] MEDS ORDERED: vancomycin/NS 1 GM ADD-VANTAGE 250 ML IV ONE (13:25)
[2022-12-10 14:22] LABS: ALANINE AMINOTRANSFERASE 20 U/L (12-78); ALBUMIN 3.4 G/DL (3.4-5.0); ALBUMIN/GLOBULIN RATIO 1.3 (1.1-1.5); ALKALINE PHOSPHATASE 99 IU/L (46-116); ANION GAP 8 (8-16); ASPARTATE AMINO TRANSFERASE 14 U/L (10-37); BILIRUBIN,TOTAL 0.7 MG/DL (0.1-1.0); BLOOD UREA NITROGEN 19 MG/DL (7-18); BUN/CREATININE RATIO 16.4 (10.0-20.0); CALCIUM 8.9 MG/DL (8.5-10.1); CHLORIDE 106 MMOL/L (99-107); CREATININE 1.16 MG/DL (0.60-1.10); GLUCOSE 95 MG/DL (70-104); MAGNESIUM 2.2 MG/DL (1.5-2.4); POTASSIUM 3.9 MMOL/L (3.5-5.1); SODIUM 142 MMOL/L (135-145); TOTAL CARBON DIOXIDE 28.3 MMOL/L (24-32); TOTAL PROTEIN 6.1 G/DL (6.4-8.2); eCRCL 68 ML/MIN; eGFR 62 ML/MIN
[2022-12-10 15:40] LABS: BASOPHILS # (AUTO) 0.1 X10'3 (0-0.2); BASOPHILS % (AUTO) 0.7 % (0-1); EOSINOPHILS # (AUTO) 0.2 X10'3 (0-0.9); EOSINOPHILS % (AUTO) 1.9 % (0-6); HEMATOCRIT 56.3 % (42.0-52.0); LYMPHOCYTES # (AUTO) 1.2 X10'3 (1.1-4.8); LYMPHOCYTES % (AUTO) 13.6 % (21-51); MEAN CORPUSCULAR HEMOGLOBIN 32.2 PG (27.0-31.0); MEAN CORPUSCULAR HGB CONC 33.9 g/dL (33.0-36.5); MEAN PLATELET VOLUME 8.6 FL (7.4-10.4); MONOCYTES # (AUTO) 0.8 X10'3 (0-0.9); MONOCYTES % (AUTO) 8.8 % (2-12); NEUTROPHILS # (AUTO) 6.7 X10'3 (1.8-7.7); PLATELET COUNT 184 X10'3 (140-440); RED BLOOD COUNT 5.92 X10'6 (4.70-6.10); RED CELL DISTRIBUTION WIDTH 16.1 % (11.5-14.5); WHITE BLOOD COUNT 8.9 X10'3 (4.5-11.0)
[2022-12-10 15:42] LABS: HEMOGLOBIN 19.1 g/dl (14.0-17.9)
[2022-12-10] MEDS ORDERED: ATOR20TA66 PO (15:55)
[2022-12-10] MEDS ORDERED: FURO20TA4 PO (15:55)
[2022-12-10] MEDS ORDERED: METO-539 PO (15:57)
[2022-12-10] MEDS ORDERED: SACU1TAB PO (15:57)
[2022-12-10] MEDS ORDERED: EMPA10TA PO (15:57)
[2022-12-10] MEDS ORDERED: BUDE10.22 INH (15:57)
[2022-12-10] MEDS ORDERED: ALBU6.7H14 INH (15:58)
[2022-12-10] MEDS ORDERED: acetaminophen 325mg tablet PO PRN (16:40)
[2022-12-10] MEDS ORDERED: magnesium 2GM in 50ml NS 50 ML IV PRN (16:40)
[2022-12-10] MEDS ORDERED: magnesium Cl slow-release 64mg tablet PO PRN (16:40)
[2022-12-10] MEDS ORDERED: morphine 2 MG/ML inj. syringe IV PRN ×2 (16:40)
[2022-12-10] MEDS ORDERED: HYDROcodone/acetaminophen 5mg/325mg tablet PO PRN (16:40)
[2022-12-10] MEDS ORDERED: HYDROcodone/acetaminophen 10/325mg tab PO PRN (16:40)
[2022-12-10] MEDS ORDERED: mag hydrox/Alum hydrox/simeth 30ml oral suspension PO PRN (16:40)
[2022-12-10] MEDS ORDERED: magnesium hydroxide 30ml (MOM) UD suspension PO PRN (16:40)
[2022-12-10] MEDS ORDERED: magnesium 4gm in 100ml NS 100 ML IV PRN (16:40)
[2022-12-10] MEDS ORDERED: ondansetron/PF 4mg/2ml inj IV PRN (16:40)
[2022-12-10] MEDS ORDERED: potassium Cl 40MEQ/1/2NS 520ml 520 ML IV PRN (16:40)
[2022-12-10] MEDS ORDERED: potassium Cl 20 mEq SR tablet PO PRN ×2 (16:40)
[2022-12-10] MEDS ORDERED: metoprolol succinate 25mg (24-HOUR) SR. Tablet PO SCH (17:25)
[2022-12-10] MEDS ORDERED: albuterol 2.5 MG/3 ML nebule NEB PRN (17:25)
[2022-12-10 17:41] VITALS: PULSE 84; RESP 18; O2SAT 97
[2022-12-10 17:44] LABS: APTT 29 SECONDS (22-32); PROTHROMBIN TIME 10.6 SECONDS (9.0-12.0)
[2022-12-10 18:05] LABS: THYROID STIMULATING HORMONE 1.67 ulU/ml (0.34-4.50)
[2022-12-10] MEDS: metoprolol succinate 25mg (24-HOUR) SR. Tablet PO SCH (18:12)
[2022-12-10 18:37] LABS: HEMOGLOBIN A1C 5.9 % (4.5-6.2)
[2022-12-10] MEDS: K and/or MAG REPLACEMENT MC SCH (19:41)
[2022-12-10] MEDS: furosemide 20 MG/2 ML vial IV SCH (19:42)
[2022-12-10 19:54] LABS: BILIRUBIN,URINE NEGATIVE (Neg); CLARITY,URINE CLEAR (Clear); COLOR,URINE STRAW (Yellow); GLUCOSE, URINE >=1000 mg/dl (Neg); KETONES,URINE NEGATIVE (Neg); LEUKOCYTE ESTERASE ,URINE NEGATIVE (Neg); NITRITES, URINE NEGATIVE (Neg); OCCULT BLOOD,URINE NEGATIVE (Neg); PROTEIN,URINE NEGATIVE (Neg); UROBILINOGEN,URINE 0.2 E.U/dL (0.2-1.0)
[2022-12-10 19:59] LABS: UA COLLECTION TYPE CLN CATCH MIDSTREAM
[2022-12-10] MEDS: budesonide 0.5mg/2ml UD nebule IH SCH (20:03)
[2022-12-10] MEDS: albuterol 2.5 MG/3 ML nebule NEB SCH (20:03)
[2022-12-10 20:06] VITALS: PULSE 73; RESP 16; O2SAT 98
[2022-12-10 20:13] VITALS: PULSE 74; RESP 16
[2022-12-10] MEDS: docusate sod 100mg capsule PO SCH (20:16)
[2022-12-10] MEDS: sacubitril/valsartan 24mg-26mg tablet PO SCH (20:16)
[2022-12-10 20:28] LABS: SQUAMOUS EPITHELIAL CELL,UR FEW /LPF (FEW)
[2022-12-10 20:29] LABS: BACTERIA,URINE FEW /HPF (Neg); RBC,URINE NONE SEEN /HPF (0-2); WBC,URINE 0-4 /HPF (0-4)
[2022-12-10 22:00] VITALS: BP 163/88; PULSE 64; RESP 16; TEMP 96.7; O2SAT 98
--- NOTE | 2022-12-10 23:59 | NUR ---
I have reviewed and agree with all interventions, assessments performed and documented by (FANTASMA ZENDEJAS)
[2022-12-11] VITALS (14 sets, daily range): BP systolic 145–165; BP diastolic 75–86; PULSE 60–83; RESP 15–18; TEMP 97.5–98.6; O2SAT 95–98
[2022-12-11] MEDS: heparin, porcine 5000 units/ml vial SQ SCH ×4 (00:47→23:39)
[2022-12-11] MEDS: ceFAZolin/D5W- 1GM premix 50 ML IV SCH ×2 (00:47→08:01)
[2022-12-11] MEDS: albuterol 2.5 MG/3 ML nebule NEB SCH ×4 (03:33→20:24)
--- NOTE | 2022-12-11 06:32 | NUR ---
Patient in room ORTHO 4010. I have received report from Jessica CHIN and had the opportunity to ask questions and assume patient care.
[2022-12-11 07:09] LABS: BASOPHILS # (AUTO) 0.1 X10'3 (0-0.2); EOSINOPHILS # (AUTO) 0.2 X10'3 (0-0.9); EOSINOPHILS % (AUTO) 2.3 % (0-6); HEMATOCRIT 47.4 % (42.0-52.0); HEMOGLOBIN 15.9 g/dl (14.0-17.9); LYMPHOCYTES # (AUTO) 0.9 X10'3 (1.1-4.8); MEAN CORPUSCULAR HGB CONC 33.5 g/dL (33.0-36.5); MEAN CORPUSCULAR VOLUME 95.6 FL (78-98); MEAN PLATELET VOLUME 8.4 FL (7.4-10.4); MONOCYTES # (AUTO) 0.8 X10'3 (0-0.9); MONOCYTES % (AUTO) 11.8 % (2-12); NEUTROPHILS # (AUTO) 4.7 X10'3 (1.8-7.7); NEUTROPHILS % (AUTO) 70.9 % (42-75); PLATELET COUNT 157 X10'3 (140-440); RED BLOOD COUNT 4.96 X10'6 (4.70-6.10); RED CELL DISTRIBUTION WIDTH 15.7 % (11.5-14.5); WHITE BLOOD COUNT 6.7 X10'3 (4.5-11.0)
[2022-12-11 07:10] LABS: ALANINE AMINOTRANSFERASE 16 U/L (12-78); ALBUMIN 2.8 G/DL (3.4-5.0); ALBUMIN/GLOBULIN RATIO 1.2 (1.1-1.5); ALKALINE PHOSPHATASE 93 IU/L (46-116); ANION GAP 4 (8-16); ASPARTATE AMINO TRANSFERASE 14 U/L (10-37); BILIRUBIN,TOTAL 0.9 MG/DL (0.1-1.0); BLOOD UREA NITROGEN 18 MG/DL (7-18); BUN/CREATININE RATIO 15.3 (10.0-20.0); CALCIUM 8.4 MG/DL (8.5-10.1); CHLORIDE 105 MMOL/L (99-107); CHOL/HDL RATIO 2.3 (0.00-4.99); CHOLESTEROL 141 MG/DL (0-200); CREATININE 1.18 MG/DL (0.60-1.10); GLUCOSE 91 MG/DL (70-104); HDL CHOLESTEROL 62 MG/DL (35-60); LDL CHOLESTEROL 61 MG/DL (50-100); PHOSPHORUS 3.5 MG/DL (2.3-4.5); POTASSIUM 3.7 MMOL/L (3.5-5.1); SODIUM 141 MMOL/L (135-145); TOTAL CARBON DIOXIDE 31.8 MMOL/L (24-32); TOTAL PROTEIN 5.2 G/DL (6.4-8.2); TRIGLYCERIDES 92 MG/DL (20-135); eCRCL 67 ML/MIN; eGFR 60 ML/MIN
[2022-12-11] MEDS: K and/or MAG REPLACEMENT MC SCH ×2 (07:52→20:00)
[2022-12-11] MEDS: atorvastatin 20mg tablet PO SCH (08:01)
[2022-12-11] MEDS: docusate sod 100mg capsule PO SCH ×2 (08:01→20:38)
[2022-12-11] MEDS: EMPAGLIFLOZIN 10 MG TABLET PO SCH (08:01)
[2022-12-11] MEDS: sacubitril/valsartan 24mg-26mg tablet PO SCH ×2 (08:01→20:38)
[2022-12-11] MEDS: metoprolol succinate 25mg (24-HOUR) SR. Tablet PO SCH (08:01)
[2022-12-11] MEDS: furosemide 20 MG/2 ML vial IV SCH ×2 (08:02→20:38)
[2022-12-11] MEDS: budesonide 0.5mg/2ml UD nebule IH SCH ×2 (08:38→20:24)
--- NOTE | 2022-12-11 09:53 | NUR ---
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 Wound care has been consulted, pending assessment at this time. Pt on a 2 g sodium restricted diet, pending documentation of PO intake. LB 12/11 per EMR. Will continue to follow closely and monitor need for nutrition intervention pending wound care assessment and trends in PO intake. Recommendations: 1) Continue 2 g Na restricted diet; lipid panel WNL and A1c 5.9% 2) Monitor need for ONS/additional protein 3) Routine bowel care 4) Weekly scaled weights Addendum: 12/11/22 at [address] Amended: Links added.
[2022-12-11] MEDS: vancomycin/NS 1 GM ADD-VANTAGE 250 ML IV SCH ×2 (12:29→23:38)
--- NOTE | 2022-12-11 18:00 | NUR ---
Patient in room ORTHO 4010. I have received report from ELSY Brady and had the opportunity to ask questions and assume patient care.
--- NOTE | 2022-12-11 18:31 | NUR ---
Problems reprioritized. Patient report given, questions answered & plan of care reviewed with Arabella.
[2022-12-12] VITALS (13 sets, daily range): BP systolic 117–151; BP diastolic 59–74; PULSE 73–89; RESP 16–22; TEMP 97.4–98.8; O2SAT 92–98
[2022-12-12] MEDS: albuterol 2.5 MG/3 ML nebule NEB SCH ×4 (03:26→21:08)
--- NOTE | 2022-12-12 06:22 | NUR ---
Problems reprioritized. Patient report given, questions answered & plan of care reviewed with ELSY Lind.
[2022-12-12 06:24] LABS: BASOPHILS % (AUTO) 0.5 % (0-1); EOSINOPHILS # (AUTO) 0.1 X10'3 (0-0.9); HEMATOCRIT 45.1 % (42.0-52.0); HEMOGLOBIN 15.3 g/dl (14.0-17.9); LYMPHOCYTES # (AUTO) 0.9 X10'3 (1.1-4.8); MEAN CORPUSCULAR HEMOGLOBIN 31.9 PG (27.0-31.0); MEAN CORPUSCULAR HGB CONC 33.9 g/dL (33.0-36.5); MEAN CORPUSCULAR VOLUME 94.1 FL (78-98); MEAN PLATELET VOLUME 8.2 FL (7.4-10.4); MONOCYTES # (AUTO) 0.7 X10'3 (0-0.9); MONOCYTES % (AUTO) 11.7 % (2-12); NEUTROPHILS % (AUTO) 69.8 % (42-75); PLATELET COUNT 139 X10'3 (140-440); RED BLOOD COUNT 4.79 X10'6 (4.70-6.10); RED CELL DISTRIBUTION WIDTH 15.5 % (11.5-14.5); WHITE BLOOD COUNT 5.7 X10'3 (4.5-11.0)
[2022-12-12 06:36] LABS: ANION GAP 7 (8-16); BLOOD UREA NITROGEN 18 MG/DL (7-18); BUN/CREATININE RATIO 16.7 (10.0-20.0); CALCIUM 8.4 MG/DL (8.5-10.1); CHLORIDE 106 MMOL/L (99-107); CREATININE 1.08 MG/DL (0.60-1.10); GLUCOSE 105 MG/DL (70-104); MAGNESIUM 2.1 MG/DL (1.5-2.4); PHOSPHORUS 3.8 MG/DL (2.3-4.5); POTASSIUM 3.5 MMOL/L (3.5-5.1); SODIUM 140 MMOL/L (135-145); TOTAL CARBON DIOXIDE 27.3 MMOL/L (24-32); eCRCL 73 ML/MIN; eGFR 67 ML/MIN
[2022-12-12 06:37] LABS: ALANINE AMINOTRANSFERASE 12 U/L (12-78); ALBUMIN 2.7 G/DL (3.4-5.0); ALBUMIN/GLOBULIN RATIO 1.1 (1.1-1.5); ALKALINE PHOSPHATASE 87 IU/L (46-116); ASPARTATE AMINO TRANSFERASE 15 U/L (10-37); BILIRUBIN,TOTAL 0.9 MG/DL (0.1-1.0); TOTAL PROTEIN 5.1 G/DL (6.4-8.2)
--- NOTE | 2022-12-12 06:42 | NUR ---
Patient in room ORTHO 4010. I have received report from Nanda CHIN and had the opportunity to ask questions and assume patient care.
[2022-12-12] MEDS: heparin, porcine 5000 units/ml vial SQ SCH ×3 (08:00→23:39)
[2022-12-12] MEDS: K and/or MAG REPLACEMENT MC SCH ×2 (08:00→20:00)
[2022-12-12] MEDS: atorvastatin 20mg tablet PO SCH (08:43)
[2022-12-12] MEDS: docusate sod 100mg capsule PO SCH ×2 (08:43→23:46)
[2022-12-12] MEDS: sacubitril/valsartan 24mg-26mg tablet PO SCH ×2 (08:43→23:38)
[2022-12-12] MEDS: EMPAGLIFLOZIN 10 MG TABLET PO SCH (08:43)
[2022-12-12] MEDS: metoprolol succinate 25mg (24-HOUR) SR. Tablet PO SCH (08:43)
[2022-12-12] MEDS: furosemide 20 MG/2 ML vial IV SCH ×2 (08:44→23:38)
[2022-12-12] MEDS: budesonide 0.5mg/2ml UD nebule IH SCH ×2 (09:03→21:08)
[2022-12-12] MEDS: vancomycin/NS 1 GM ADD-VANTAGE 250 ML IV SCH (12:08)
--- NOTE | 2022-12-12 17:46 | NUR ---
1300 Patient IV was hurting and was slightly reddened, New IV was placed for medication infusion. 1530 Patient IV started bleeding and was addressed 1600 Patient IV was unable to flush at this time with less than half of antibiotic was unable to be given.
--- NOTE | 2022-12-12 18:31 | NUR ---
Patient in room ORTHO 4010. I have received report from Carolina RN and had the opportunity to ask questions and assume patient care.
[2022-12-12] MEDS ORDERED: VANCOMYCIN LEVEL IV ONE (23:30)
[2022-12-13] VITALS (12 sets, daily range): BP systolic 120–163; BP diastolic 46–86; PULSE 61–88; RESP 16–20; TEMP 97.8–98; O2SAT 94–96
[2022-12-13] MEDS: vancomycin/NS 1 GM ADD-VANTAGE 250 ML IV SCH (00:23)
[2022-12-13] MEDS: albuterol 2.5 MG/3 ML nebule NEB SCH ×4 (03:20→20:47)
[2022-12-13 06:15] LABS: BASOPHILS % (AUTO) 0.6 % (0-1); EOSINOPHILS # (AUTO) 0.2 X10'3 (0-0.9); EOSINOPHILS % (AUTO) 2.5 % (0-6); HEMATOCRIT 44.8 % (42.0-52.0); LYMPHOCYTES # (AUTO) 0.9 X10'3 (1.1-4.8); LYMPHOCYTES % (AUTO) 13.8 % (21-51); MEAN CORPUSCULAR HEMOGLOBIN 31.8 PG (27.0-31.0); MEAN CORPUSCULAR HGB CONC 33.4 g/dL (33.0-36.5); MEAN CORPUSCULAR VOLUME 95.1 FL (78-98); MEAN PLATELET VOLUME 8.1 FL (7.4-10.4); MONOCYTES # (AUTO) 0.8 X10'3 (0-0.9); MONOCYTES % (AUTO) 12.2 % (2-12); NEUTROPHILS # (AUTO) 4.5 X10'3 (1.8-7.7); NEUTROPHILS % (AUTO) 70.9 % (42-75); PLATELET COUNT 133 X10'3 (140-440); RED BLOOD COUNT 4.71 X10'6 (4.70-6.10); RED CELL DISTRIBUTION WIDTH 15.3 % (11.5-14.5); WHITE BLOOD COUNT 6.4 X10'3 (4.5-11.0)
[2022-12-13 06:26] LABS: ALANINE AMINOTRANSFERASE 14 U/L (12-78); ALBUMIN/GLOBULIN RATIO 1.2 (1.1-1.5); ALKALINE PHOSPHATASE 90 IU/L (46-116); ANION GAP 6 (8-16); ASPARTATE AMINO TRANSFERASE 14 U/L (10-37); BILIRUBIN,TOTAL 0.9 MG/DL (0.1-1.0); BLOOD UREA NITROGEN 21 MG/DL (7-18); BUN/CREATININE RATIO 15.4 (10.0-20.0); CALCIUM 9.1 MG/DL (8.5-10.1); CHLORIDE 105 MMOL/L (99-107); CREATININE 1.36 MG/DL (0.60-1.10); GLUCOSE 103 MG/DL (70-104); PHOSPHORUS 3.4 MG/DL (2.3-4.5); POTASSIUM 3.6 MMOL/L (3.5-5.1); SODIUM 140 MMOL/L (135-145); TOTAL CARBON DIOXIDE 29.4 MMOL/L (24-32); TOTAL PROTEIN 5.5 G/DL (6.4-8.2); eCRCL 58 ML/MIN; eGFR 51 ML/MIN
--- NOTE | 2022-12-13 06:37 | NUR ---
Patient in room ORTHO 4010B. I have received report from ELSY Figueroa, and had the opportunity to ask questions and assume patient care.
[2022-12-13] MEDS: K and/or MAG REPLACEMENT MC SCH ×2 (08:00→20:00)
[2022-12-13] MEDS: budesonide 0.5mg/2ml UD nebule IH SCH ×2 (08:59→20:47)
[2022-12-13] MEDS: furosemide 20 MG/2 ML vial IV SCH ×2 (09:36→20:37)
[2022-12-13] MEDS: metoprolol succinate 25mg (24-HOUR) SR. Tablet PO SCH (09:40)
[2022-12-13] MEDS: docusate sod 100mg capsule PO SCH ×2 (09:40→20:37)
[2022-12-13] MEDS: sacubitril/valsartan 24mg-26mg tablet PO SCH ×2 (09:41→20:37)
[2022-12-13] MEDS: atorvastatin 20mg tablet PO SCH (09:41)
[2022-12-13] MEDS: EMPAGLIFLOZIN 10 MG TABLET PO SCH (09:41)
[2022-12-13] MEDS: heparin, porcine 5000 units/ml vial SQ SCH (09:42)
[2022-12-13] MEDS: VANCOmycin 1250MG/NS 250ml Bag 250 ML IV SCH (12:00)
--- NOTE | 2022-12-13 15:15 | NUR ---
PRESSURE ULCER EDUCATION: DEFINITION: A pressure ulcer is an area of skin that breaks down when you stay in one position too long. The constant pressure against the skin reduces the blood flow to that area and the affected tissue dies. CAUSES: "Being bedridden or in a wheelchair "Fragile skin "Having a chronic condition, such as diabetes or vascular disease "Inability to move certain parts of your body without assistance "Older age "Incontinence of urine or stool SYMPTOMS: "A reddened area that DOES NOT turn white when pressed on - this can be the beginning of a pressure ulcer "A blister, deep sore or a crater - these can be advanced pressure ulcers FIRST AID: "Relieve the pressure on this area "Keep the area clean and dry "Call your primary doctor if you see any of the above symptoms "DO NOT massage the area "DO NOT use a donut shaped or ring shaped pillow- these actually interfere with the blood flow and cause complications PREVENTION: "Check for pressure ulcers everyday "Change position at least every two hours to relieve pressure "Use items that help relieve pressure- pillows, sheepskin, foam padding, and powders. "Keep skin clean and dry "Eat healthy well balanced meals "Exercise daily IF YOU SEE ANY OF THESE SYMPTOMS WHILE IN THE HOSPITAL - TELL YOUR NURSE IMMEDIATELY. IF YOU SEE ANY OF THESE SYMPTOMS WHILE AT HOME OR HAVE ANY QUESTIONS OR CONCERNS ABOUT PRESSURE ULCERS - CALL YOUR PRIMARY DOCTOR IMMEDIATELY. Addendum: 12/13/22 at 1515 by Rafi Seaman RN Amended: Links added.
--- NOTE | 2022-12-13 18:48 | NUR ---
Problems reprioritized. Patient report given, questions answered & plan of care reviewed with ELSY Figueroa.
[2022-12-14] MEDS: VANCOmycin 1250MG/NS 250ml Bag 250 ML IV SCH (00:21)
[2022-12-14] MEDS: heparin, porcine 5000 units/ml vial SQ SCH ×3 (00:22→08:56)
[2022-12-14 03:18] VITALS: PULSE 76; RESP 18; O2SAT 94
[2022-12-14] MEDS: albuterol 2.5 MG/3 ML nebule NEB SCH ×2 (03:18→09:10)
[2022-12-14 03:24] VITALS: PULSE 64; RESP 16
[2022-12-14 06:00] VITALS: BP 169/69; PULSE 70; RESP 20; TEMP 97.8; O2SAT 95
[2022-12-14 06:21] LABS: BASOPHILS # (AUTO) 0.1 X10'3 (0-0.2); BASOPHILS % (AUTO) 0.8 % (0-1); EOSINOPHILS # (AUTO) 0.3 X10'3 (0-0.9); EOSINOPHILS % (AUTO) 4.7 % (0-6); HEMATOCRIT 46.4 % (42.0-52.0); HEMOGLOBIN 15.6 g/dl (14.0-17.9); LYMPHOCYTES # (AUTO) 0.9 X10'3 (1.1-4.8); LYMPHOCYTES % (AUTO) 14.4 % (21-51); MEAN CORPUSCULAR HGB CONC 33.5 g/dL (33.0-36.5); MEAN CORPUSCULAR VOLUME 95.5 FL (78-98); MEAN PLATELET VOLUME 8.3 FL (7.4-10.4); MONOCYTES # (AUTO) 0.7 X10'3 (0-0.9); MONOCYTES % (AUTO) 11.2 % (2-12); NEUTROPHILS # (AUTO) 4.5 X10'3 (1.8-7.7); NEUTROPHILS % (AUTO) 68.9 % (42-75); PLATELET COUNT 139 X10'3 (140-440); RED BLOOD COUNT 4.86 X10'6 (4.70-6.10); RED CELL DISTRIBUTION WIDTH 15.2 % (11.5-14.5); WHITE BLOOD COUNT 6.6 X10'3 (4.5-11.0)
--- NOTE | 2022-12-14 06:24 | NUR ---
Patient in room ORTHO 4009 B. I have received report from ELSY Figueroa, and had the opportunity to ask questions and assume patient care.
[2022-12-14 06:32] LABS: ALANINE AMINOTRANSFERASE 18 U/L (12-78); ALBUMIN 2.9 G/DL (3.4-5.0); ALBUMIN/GLOBULIN RATIO 1.1 (1.1-1.5); ALKALINE PHOSPHATASE 90 IU/L (46-116); ANION GAP 7 (8-16); ASPARTATE AMINO TRANSFERASE 15 U/L (10-37); BILIRUBIN,TOTAL 0.9 MG/DL (0.1-1.0); BLOOD UREA NITROGEN 22 MG/DL (7-18); BUN/CREATININE RATIO 18.3 (10.0-20.0); CHLORIDE 104 MMOL/L (99-107); GLUCOSE 124 MG/DL (70-104); MAGNESIUM 2.2 MG/DL (1.5-2.4); PHOSPHORUS 3.9 MG/DL (2.3-4.5); POTASSIUM 3.9 MMOL/L (3.5-5.1); SODIUM 138 MMOL/L (135-145); TOTAL CARBON DIOXIDE 27.2 MMOL/L (24-32); TOTAL PROTEIN 5.6 G/DL (6.4-8.2); eCRCL 66 ML/MIN; eGFR 59 ML/MIN
[2022-12-14] MEDS: K and/or MAG REPLACEMENT MC SCH (08:00)
[2022-12-14] MEDS ORDERED: CefTRIAXone/D5W-Rocephin 1gm 50 ML IV SCH (08:05)
[2022-12-14] MEDS: furosemide 20 MG/2 ML vial IV SCH (08:54)
[2022-12-14] MEDS: budesonide 0.5mg/2ml UD nebule IH SCH (09:10)
[2022-12-14 09:13] VITALS: PULSE 79; RESP 18; O2SAT 92
[2022-12-14 09:19] VITALS: PULSE 68; RESP 18
--- NOTE | 2022-12-14 09:26 | NUR ---
Reassessment: Pt seen by wound care, per note pt with left lateral ankle cellulitis. Pt continues on 2 g sodium restricted diet and eating well, documented with 100% PO intake of all meals meeting 95% estimated energy needs and 100% estimated protein needs. LBM 12/11 per EMR. Pt receiving routine bowel care and has PRN bowel care available. No nutrition intervention implemented at this time. Will continue to follow and make recommendations as appropriate. Recommendations: 1) Continue 2 g Na restricted diet; lipid panel WNL and A1c 5.9% 2) Monitor need for additional protein for satiety 3) Routine bowel care 4) Weekly scaled weights Addendum: 12/14/22 at [address] Amended: Links added.
[2022-12-14] MEDS: atorvastatin 20mg tablet PO SCH (09:35)
[2022-12-14] MEDS: metoprolol succinate 25mg (24-HOUR) SR. Tablet PO SCH (09:35)
[2022-12-14] MEDS: EMPAGLIFLOZIN 10 MG TABLET PO SCH (09:35)
[2022-12-14] MEDS: docusate sod 100mg capsule PO SCH (09:35)
[2022-12-14 10:00] VITALS: BP 108/72; PULSE 64; RESP 17; TEMP 98; O2SAT 98
[2022-12-14] MEDS: sacubitril/valsartan 24mg-26mg tablet PO SCH (12:39)
--- NOTE | 2022-12-14 14:30 | NUR ---
Pricila phoned to say pt's clothes and wallet was left behind. Items were found, Pricila was notified, and she picked up items from the lobby as agreed.
[2022-12-14] MEDS ORDERED: VANCOMYCIN LEVEL IV ONE (23:30)
== END 2022-12-14 13:30 | DRG 592 ==
LOC: ER 10:18 → ED HOLD 16:59 → ORTHO 4S 20:45
PROVIDERS: ADMIT Student in an Organized Health Care Education/Training Program; ATTEND Student in an Organized Health Care Education/Training Program
DX: L97.829 Non-pressure chronic ulcer of other part of left lower leg with unspecified severity (principal); I50.23 Acute on chronic systolic (congestive) heart failure; L03.116 Cellulitis of left lower limb; I13.0 Hypertensive heart and chronic kidney disease with heart failure and stage 1 through stage 4 chronic kidney disease, or unspecified chronic kidney disease; L08.89 Other specified local infections of the skin and subcutaneous tissue; B96.89 Other specified bacterial agents as the cause of diseases classified elsewhere; I87.2 Venous insufficiency (chronic) (peripheral); B95.7 Other staphylococcus as the cause of diseases classified elsewhere; J44.9 Chronic obstructive pulmonary disease, unspecified; I25.10 Atherosclerotic heart disease of native coronary artery without angina pectoris; E78.00 Pure hypercholesterolemia, unspecified; E11.22 Type 2 diabetes mellitus with diabetic chronic kidney disease; F10.90 Alcohol use, unspecified, uncomplicated; D75.1 Secondary polycythemia; N18.30 Chronic kidney disease, stage 3 unspecified; Z60.2 Problems related to living alone; Z95.1 Presence of aortocoronary bypass graft; Z87.891 Personal history of nicotine dependence; I25.2 Old myocardial infarction; Z88.8 Allergy status to other drugs, medicaments and biological substances; Z79.899 Other long term (current) drug therapy; L97.819 Non-pressure chronic ulcer of other part of right lower leg with unspecified severity
CPT/HCPCS: 36415; 80053; 80061; 80202; 81001; 83036; 83605; 83735; 83880; 84100; 84132; 84145; 84443; 85025; 85610; 85730; 87040; 87070; 87077; 87081; 87186; 94640; 94760; 97116; 97161; 97530; 99285; A4649; A6209; A6212; A6223; A6250; A6258; A6446; A6449; G0378; J0690; J0696; J1644; J1940; J3370; J7030; J7040